=== PATIENT | male | born 1955 | race Caucasian/White ===

== ENCOUNTER → 2021-12-23 10:32 | Outpatient (CLI) | payer MEDICARE, MEDICAID, SELFPAY ==
[2021-12-23 19:21] LABS: Add Manual Diff / Slide Review NO; Basophils Absolute Auto 0 /uL (0-100); Basophils Percent Auto 1.1 % (0-2); Eosinophils Absolute Auto 100 /uL (0-450); Eosinophils Percent Auto 3.8 % (2-4); Hemoglobin 13.7 g/dL (13.5-17.5); Lymphocytes Absolute Auto 1200 /uL (1100-4500); Lymphocytes Percent Auto 31.5 % (25-40); Mean Corpuscular HGB Conc 33.4 % (30-36); Mean Corpuscular Hemoglobin 30.4 PG (26-34); Mean Corpuscular Volume 90.9 fL (80-100); Monocytes Absolute Auto 500 /uL (0-900); Monocytes Percent Auto 12.9 % (3-14); Neutrophils Absolute Auto 2000 /uL (1500-7000); Neutrophils Percent Auto 50.7 % (50-75); Platelet Count 235 X10^3/uL (150-400); Red Blood Cell Count 4.51 X10^6/uL (4.5-5.9); White Blood Cell Count 3.9 X10^3/uL (4.5-11.0)
[2021-12-23 20:37] LABS: Prostate Specific Antigen 0.419 ng/mL (0.10-4.00)
[2021-12-24 09:46] LABS: Alanine Aminotransferase 31 IU/L (<50); Albumin Globulin Ratio 1.3 (1.0-2.8); Alkaline Phosphatase 56 U/L (38-126); Aspartate Aminotransferase 32 IU/L (17-59); BUN Creatinine Ratio 15.4 (6-22); Bilirubin Total 0.4 mg/dL (0.2-1.3); Blood Urea Nitrogen 12 mg/dL (9-20); Carbon Dioxide 24 mmol/L (22-32); Chloride 104 mmol/L (98-107); Estimated Glomerular Filt Rate > 60 mL/min (>60); Glucose 99 mg/dL (80-110); HEMOLYSIS < 15 (0-50); Potassium 4.2 mmol/L (3.4-5.1); Sodium 135 mmol/L (137-145)
[2021-12-24 15:33] LABS: Cholesterol 213 mg/dL (140-199); HDL Cholesterol 73 mg/dL (40-60); LDL Cholesterol Calculated 126 mg/dL (<100); Triglycerides 70 mg/dL (35-150)
[2021-12-24 15:36] LABS: Hemoglobin A1C% w Est Avg Glu 5.6 % (4.0-6.0)
[2021-12-24 15:42] LABS: NT-proBNP (BNP-Adult 18+) 139 pg/mL (<125)
== END ==
PROVIDERS: PCP Physician Assistant; Visit Provider Physician Assistant
DX: Z01.818 Encounter for other preprocedural examination (principal); Z12.5 Encounter for screening for malignant neoplasm of prostate; Z13.1 Encounter for screening for diabetes mellitus; R53.83 Other fatigue; R60.0 Localized edema; Z23 Encounter for immunization
CPT/HCPCS: 80053; 80061; 83036; 83880; 84153; 85025

== ENCOUNTER → 2022-06-30 08:29 | Outpatient (CLI) | payer MEDICARE, MEDICAID, SELFPAY ==
--- NOTE | 2022-06-30 08:33 | DI.MRI.S_ITS ---
PROCEDURE: MR HIP RT WO/W CON INDICATIONS: Right hip pain TECHNIQUE: Noncontrast coronal T1 spin echo and STIR through the bony pelvis. Coronal and axial T2 fast spin echo with fat saturation, axial T1 spin echo with fat saturation, sagittal T1 spin echo, and oblique axial T2 fast spin echo with fat saturation through the hip. Post-contrast axial, coronal, and sagittal spin echo with fat saturation through the hip. COMPARISON: None. FINDINGS: Image quality: Diagnostic. Significant patient no valencia is noted throughout the study. Bones and joints: Asymmetric right worse than left bilateral hip joint osteoarthritic changes are seen with significant joint space narrowing, subchondral sclerosis and marginal osteophyte formation. Prominence of superior anterior right femoral head neck junction is noted which can be seen associated with CAM type femoral acetabular impingement. No intraosseous lesions or fractures. No avascular necrosis of the femoral heads. The visualized lower lumbar spine appears normally aligned. Tendons and ligaments: Distal right gluteus medius and minimus tendinosis at their insertion on greater trochanter is seen, without associated muscle atrophy. The nearby proximal iliotibial band also appears intact. The iliopsoas tendon appears intact, without adjacent bursal fluid collections or evidence for impingement syndrome. Tendinosis involving origins of hamstring tendons at ischial tuberosity is also noted. The straight and reflected heads of the rectus femoris muscle origin appear intact, as well as the conjoint tendon. The ligamentum teres appears intact where visualized. Labrum and cartilage: Signal abnormality and contour irregularity involving superior labrum extending from 11-2 o'clock position suggestive of superior anterior labral tear. Diffuse loss of articulating cartilages over femoral head is seen. There is small amount of right hip joint effusion. Oval 1.5 cm loose body in anterior inferior right hip joint is seen adjacent to right femoral neck. Soft tissues: No suspicious soft tissue enhancement. Visualized muscles demonstrate normal bulk and internal signal. Quadratus femoris muscle demonstrates no internal edema to suggest ischiofemoral impingement. The proximal sciatic neurovascular bundle appears normal adjacent to the hamstring tendons. No free pelvic fluid. Bladder wall thickness is normal. Genitourinary structures and bowel loops appear normal where visualized. IMPRESSION: 1. Asymmetric moderate right hip joint osteoarthritis. No hip fracture or dislocation. No evidence of avascular necrosis of femoral head. No abnormal intraosseous enhancement. 2. Prominence of superior anterior right femoral head neck junction with subcortical cystic areas which can be seen associated with CAM type femoral acetabular impingement. 3. Small right hip joint effusion with 1.5 cm intra-articular loose body as above. 4. Distal right gluteus medius and minimus tendinosis. Tendinosis involving hamstring tendon origins at ischial tuberosity. No other muscle or tendon signal abnormalities. No abnormal soft tissue enhancement. 5. Suggestion of extensive superior labral tear at 11 to 2 o'clock position. Dictated by: Swapnil Ball M.D. on 06/30/2022 at 10:49 Approved by: Swapnil Ball M.D. on 06/30/2022 at 11:39
== END ==
PROVIDERS: PCP Physician Assistant; Referring Provider Physician Assistant; Visit Provider Physician Assistant
DX: M16.0 Bilateral primary osteoarthritis of hip (principal); M25.551 Pain in right hip; M65.251 Calcific tendinitis, right thigh; R93.7 Abnormal findings on diagnostic imaging of other parts of musculoskeletal system; M25.451 Effusion, right hip
CPT/HCPCS: 73723

== ENCOUNTER 2022-08-20 10:32 | Inpatient (IN) | payer MEDICARE, MEDICAID, SELFPAY ==
[2022-08-20] VITALS (15 sets, daily range): BP systolic 99–115; BP diastolic 57–71; PULSE 8–98; RESP 14–28; TEMP 36.7–37.7; O2SAT 92–99; BMI 29.8; BMI 29.4
--- NOTE | 2022-08-20 10:45 | DI.CT.S_ITS ---
PROCEDURE: CT ABDOMEN PELVIS W CON INDICATIONS: LLQ pain TECHNIQUE: After the administration of oral and intravenous contrast, axial sections were acquired from the lung bases to the pubic symphysis. Coronal and sagittal reformats were performed. For radiation dose reduction, the following was used: automated exposure control, adjustment of mA and/or kV according to patient size. COMPARISON:None. FINDINGS: Image quality: Excellent. Lung bases: Atelectasis in the bilateral lung bases. Heart: No significant findings. ABDOMEN: Liver: Unremarkable. Gallbladder: Unremarkable. Biliary ducts: Unremarkable. Pancreas: Unremarkable. Spleen: Unremarkable. Adrenal Glands: Unremarkable. Kidneys and Ureters: Unremarkable. Stomach and Bowel: The distal esophagus and stomach are normal. The small bowel has a normal caliber. There is diverticulosis of the left colon and sigmoid colon with diffuse long segment wall thickening of the proximal sigmoid colon and surrounding inflammation consistent with acute diverticulitis. No evidence of abscess. There are scattered punctate foci of air adjacent to the sigmoid colon consistent with micro perforation but no overt free air. Peritoneum: No abnormal intraperitoneal fluid. No free air. Ventral Wall: No hernia. Abdominal Nodes: No retroperitoneal or mesenteric adenopathy by size criteria. Vessels: Aorta and inferior vena cava are normal in size. PELVIS: Pelvic Organs: Unremarkable. Bladder: Unremarkable. Pelvic Nodes: No enlarged lymph nodes. Miscellaneous: No inguinal hernias are seen. Bones: Degenerative changes with no focal abnormality. IMPRESSION: 1. Acute diverticulitis in the sigmoid colon with microperforation and surrounding inflammation. No abscess. 2. Diffuse long segment wall thickening of the sigmoid colon, underlying neoplasm is not completely excluded and colonoscopy is recommended upon clinical improvement. Dictated by: Erwin Dye M.D. on 08/20/2022 at 11:39 Approved by: Erwin Dye M.D. on 08/20/2022 at 11:45
--- NOTE | 2022-08-20 10:47 | ED_ITS ---
HPI - Abdominal Pain <Raheel Gilbert PA-C - Last Filed: 08/20/22 13:36> General Chief Complaint: Abdominal Pain Stated Complaint: sent by [facility]/abd pain/artyhimia Time Seen by Provider: 08/20/22 10:33 Source: patient and family Mode of arrival: Family Vehicle History of Present Illness HPI narrative: This is a 67-year-old male presents to the emergency department complaining of left lower quadrant pain as well as abdominal distension for the last 3 days. He states that the pain was only mild 3 days ago but reports more severe pain onset this morning causing him to come into the emergency department. He also reports small and frequent loose stools. Denies any blood in his stool. Also reports mild nausea but denies any vomiting. Denies any chest pain, shortness of breath. Does state that he has had some tactile fevers and chills. 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 Patient denies any abdominal surgeries or abdominal medical history. Patient does state that he has a history of ?arrhythmias? and was found to have PVCs when going through stress testing. Related Data Home Medications Medication Instructions Recorded Confirmed aspirin 325 mg tablet 325 mg PO PRN PRN pain 08/20/22 08/20/22 ibuprofen 400 mg tablet 400 mg PO Q6H PRN Pain (Scale 08/20/22 08/20/22 Score 7-10) melatonin 3 mg tablet 3 mg PO QPM 08/20/22 08/20/22 Previous Rx's Medication Instructions Recorded amoxicillin 875 mg-potassium 1 tab PO Q8H 12 days #36 tabs 08/22/22 clavulanate 125 mg tablet oxycodone-acetaminophen 5 mg-325 1 tab PO Q4-6H PRN pain #10 tabs 08/22/22 mg tablet (Percocet) Allergies Allergy/AdvReac Type Severity Reaction Status Date / Time No Known Drug Allergies Allergy Verified 08/20/22 10:39 Review of Systems <Raheel Gilbert PA-C - Last Filed: 08/20/22 13:36> Review of Systems Narrative: GENERAL: Denies chills, fatigue, malaise, fever, sweats. HEENT: Denies sinus pain, ear pain, sore throat, difficulty swallowing, dizziness. RESPIRATORY: Denies dyspnea, cough, wheezing, hemoptysis, sputum. CARDIOVASCULAR: Denies chest pain, palpitations, orthopnea, edema, GASTROINTESTINAL: Reports left lower quadrant abdominal pain, diarrhea, nausea, denies vomiting, denies blood in stool : Denies dysuria, frequency, incontinence, hematuria, urinary retention. MUSCULOSKELETAL: denies weakness, joint pain, or bony pain SKIN: Denies rash, skin lesions, or other NEUROLOGIC: Denies weakness, headache, numbness, change in speech, confusion, seizures, incoordination. PSYCHIATRIC: No concerning psychosocial issues. 12 point review of systems is negative except for those stated above Patient History <Raheel Gilbert PA-C - Last Filed: 08/20/22 13:36> Medical History (Updated 08/20/22 @ 12:15 by Raheel Gilbert PA-C) Right hip pain Surgical History (Updated 03/25/21 @ 21:52 by Yvrose Barriga) Anesthesia History of cataract removal with insertion of prosthetic lens (~2016) History of dental surgery (~2017) History of tonsillectomy Retinal tear of right eye (~2018) Family History (Updated 03/25/21 @ 21:56 by Yvrose Barriga) Father History of heart disease Hypertension Mother Diabetes mellitus History of heart disease Hypertension Hyperlipidemia Stroke Brother Stroke Sister Multiple sclerosis Grandfather History of heart disease Grandmother Diabetes mellitus History of heart disease Grandfather History of heart disease Stroke Social History household members: significant other Smoking Status: Former smoker Smoking Status: Former smoker alcohol intake frequency: 0-2 drinks per day Substance Use Type: does not use Exam <Raheel Gilbert PA-C - Last Filed: 08/20/22 13:36> Narrative Exam Narrative: GENERAL: Well-developed patient, in mild distress. HEAD: Atraumatic. Normocephalic. EYES: Pupils equal round and reactive. Extraocular motions intact. No scleral icterus. No injection or drainage. ENT: Nose without bleeding, purulent drainage. Throat without erythema, tonsillar hypertrophy or exudate. Airway patent. NECK: Trachea midline. Non tender CARDIOVASCULAR: Regular rate and rhythm without murmurs, gallops, or rubs. RESPIRATORY: Clear to auscultation. Breath sounds equal bilaterally. No wheezes, rales, or rhonchi. GASTROINTESTINAL: Mild distention of the abdomen, left lower quadrant tenderness to palpation EXTREMITIES: No edema or joint tenderness. BACK: Nontender without deformity or crepitance. No flank tenderness. NEURO: AOx3. SKIN: No rash or erythema of visible areas Initial Vital Signs Initial Vital Signs: Vital Signs Pulse Rate 92 H 08/20/22 10:37 Pulse Oximetry 95 08/20/22 10:37 <West Wiggins DO - Last Filed: 08/25/22 04:15> Initial Vital Signs Initial Vital Signs: Vital Signs Pulse Rate 92 H 08/20/22 10:37 Pulse Oximetry 95 08/20/22 10:37 Course <Raheel Gilbert PA-C - Last Filed: 08/20/22 13:36> Orders Ordered: Discontinued Medications Acetaminophen (Acetaminophen 325 Mg Tablet) 650 mg PO Q6H PRN PRN Reason: Fever/Mild Pain (1-3) Last Admin: 08/22/22 07:55 Dose: 650 mg Documented By: NASEEM Enoxaparin Sodium (Enoxaparin 40 Mg/0.4 Ml Syringe) 40 mg SUBCUT DAILY [facility] Last Admin: 08/22/22 09:22 Dose: 40 mg Documented By: Admin: 08/21/22 08:35 Dose: Not Given Documented By: SB Hydromorphone HCl (Hydromorphone 0.5 Mg Inj) 0.5 mg IV Q2H PRN PRN Reason: Pain, Mild (1-3) Hydromorphone HCl (Hydromorphone 1 Mg Inj) 1 mg IV Q3H PRN PRN Reason: Pain, Moderate (4-6) Hydromorphone HCl (Hydromorphone 0.5 Mg Inj) 0.5 mg IV Q3H PRN PRN Reason: Pain, Mild (1-3) Sodium Chloride (Normal Saline 0.9%) 1,000 mls @ 1,000 mls/hr IV BOLUS ONE Stop: 08/20/22 11:43 Last Infusion: 08/20/22 12:05 Dose: 0 mls/hr Documented By: Admin: 08/20/22 11:11 Dose: 1,000 mls/hr Documented By: NR Piperacillin Sod/Tazobactam (Sod 4.5 gm/ Sodium Chloride) 100 mls @ 200 mls/hr IV NOW ONE Stop: 08/20/22 11:52 Last Admin: 08/20/22 12:28 Dose: 200 mls/hr Documented By: NR Sodium Chloride (Normal Saline 0.9%) 2,993.7 mls @ 997.9 mls/hr 30 ml/kg infuse over 3 hr (2993.7 ml) IV NOW ONE Stop: 08/20/22 15:04 Last Admin: 08/20/22 12:28 Dose: 997.9 mls/hr Documented By: NR Sodium Chloride (Normal Saline 0.9%) 1,000 mls @ 100 mls/hr IV CONT [facility] Last Admin: 08/21/22 00:22 Dose: 100 mls/hr Documented By: Infusion: 08/21/22 00:05 Dose: 100 mls/hr Documented By: Admin: 08/20/22 14:05 Dose: 100 mls/hr Documented By: HCW Piperacillin Sod/Tazobactam (Sod 3.375 gm/ Sodium Chloride) 100 mls @ 25 mls/hr IV Q8H [facility] Last Infusion: 08/22/22 12:33 Dose: 25 mls/hr Documented By: Admin: 08/22/22 07:56 Dose: 25 mls/hr Documented By: Infusion: 08/22/22 04:27 Dose: 25 mls/hr Documented By: Admin: 08/22/22 00:17 Dose: 25 mls/hr Documented By: Infusion: 08/21/22 19:49 Dose: 25 mls/hr Documented By: Admin: 08/21/22 15:49 Dose: 25 mls/hr Documented By: Infusion: 08/21/22 12:39 Dose: 0 mls/hr Documented By: Admin: 08/21/22 08:23 Dose: 25 mls/hr Documented By: Infusion: 08/21/22 04:15 Dose: 0 mls/hr Documented By: Admin: 08/21/22 00:11 Dose: 25 mls/hr Documented By: Infusion: 08/20/22 20:42 Dose: 0 mls/hr Documented By: Admin: 08/20/22 16:37 Dose: 25 mls/hr Documented By: HCW Ketorolac Tromethamine (Ketorolac 30 Mg/Ml Vial) 15 mg IV Q6H PRN PRN Reason: pain (mild/mod) Stop: 08/25/22 13:52 Last Admin: 08/21/22 11:29 Dose: 15 mg Documented By: Admin: 08/21/22 04:12 Dose: 15 mg Documented By: Admin: 08/20/22 20:45 Dose: 15 mg Documented By: Admin: 08/20/22 14:43 Dose: 15 mg Documented By: HCW Melatonin (Melatonin 3 Mg Tablet) 3 mg PO BEDTIME PRN PRN Reason: sleep Naloxone HCl (Naloxone 0.4 Mg/Ml Vial) 0.2 mg IV Q2MIN PRN PRN Reason: Opiate Reversal Ondansetron HCl (Ondansetron 4 Mg/2 Ml Inj) 4 mg IV Q4HR PRN PRN Reason: Nausea And Vomiting Ondansetron HCl (Ondansetron 4 Mg Odt) 4 mg SL Q4HR PRN PRN Reason: Nausea Oxycodone HCl (Oxycodone Ir 5 Mg Tablet) 5 mg PO Q4HR PRN PRN Reason: Pain, Moderate (4-6) Potassium Chloride (Potassium Chloride 20 Meq Tab) 40 meq PO NOW ONE Stop: 08/22/22 10:49 Last Admin: 08/22/22 11:18 Dose: 40 meq Documented By: NASEEM Sodium Chloride (Sodium Chloride 1,000 Mg Tablet) 1,000 mg PO TIDWM [facility] Last Admin: 08/22/22 12:33 Dose: 1,000 mg Documented By: Admin: 08/22/22 09:22 Dose: 1,000 mg Documented By: Admin: 08/21/22 16:49 Dose: 1,000 mg Documented By: Admin: 08/21/22 11:30 Dose: 1,000 mg Documented By: Admin: 08/21/22 08:46 Dose: 1,000 mg Documented By: MARGIE Vital Signs Vital signs: Vital Signs - 8 hr 08/20/22 10:39 08/20/22 10:37 08/20/22 10:39 Temperature 99.9 F H Pulse Rate 95 H 92 H Respiratory Rate 24 Blood Pressure 106/68 106/68 Pulse Oximetry 99 95 Oxygen Delivery Method Room Air 08/20/22 10:39 08/20/22 11:00 08/20/22 11:10 Temperature Pulse Rate 93 H 95 H Respiratory Rate 14 20 Blood Pressure 107/65 Pulse Oximetry 96 94 Oxygen Delivery Method 08/20/22 11:10 08/20/22 11:40 08/20/22 11:41 Temperature Pulse Rate 93 H 97 H 95 H Respiratory Rate 23 25 H Blood Pressure Pulse Oximetry 95 92 98 Oxygen Delivery Method 08/20/22 11:41 08/20/22 12:00 08/20/22 12:00 Temperature Pulse Rate 98 H Respiratory Rate 28 H Blood Pressure 115/68 103/71 Pulse Oximetry 97 Oxygen Delivery Method Room Air <West Wiggins DO - Last Filed: 08/25/22 04:15> Orders Ordered: Discontinued Medications Acetaminophen (Acetaminophen 325 Mg Tablet) 650 mg PO Q6H PRN PRN Reason: Fever/Mild Pain (1-3) Last Admin: 08/22/22 07:55 Dose: 650 mg Documented By: BT Enoxaparin Sodium (Enoxaparin 40 Mg/0.4 Ml Syringe) 40 mg SUBCUT DAILY [facility] Last Admin: 08/22/22 09:22 Dose: 40 mg Documented By: Admin: 08/21/22 08:35 Dose: Not Given Documented By: MARGIE Hydromorphone HCl (Hydromorphone 0.5 Mg Inj) 0.5 mg IV Q2H PRN PRN Reason: Pain, Mild (1-3) Hydromorphone HCl (Hydromorphone 1 Mg Inj) 1 mg IV Q3H PRN PRN Reason: Pain, Moderate (4-6) Hydromorphone HCl (Hydromorphone 0.5 Mg Inj) 0.5 mg IV Q3H PRN PRN Reason: Pain, Mild (1-3) Sodium Chloride (Normal Saline 0.9%) 1,000 mls @ 1,000 mls/hr IV BOLUS ONE Stop: 08/20/22 11:43 Last Infusion: 08/20/22 12:05 Dose: 0 mls/hr Documented By: Admin: 08/20/22 11:11 Dose: 1,000 mls/hr Documented By: NR Piperacillin Sod/Tazobactam (Sod 4.5 gm/ Sodium Chloride) 100 mls @ 200 mls/hr IV NOW ONE Stop: 08/20/22 11:52 Last Admin: 08/20/22 12:28 Dose: 200 mls/hr Documented By: NR Sodium Chloride (Normal Saline 0.9%) 2,993.7 mls @ 997.9 mls/hr 30 ml/kg infuse over 3 hr (2993.7 ml) IV NOW ONE Stop: 08/20/22 15:04 Last Admin: 08/20/22 12:28 Dose: 997.9 mls/hr Documented By: NR Sodium Chloride (Normal Saline 0.9%) 1,000 mls @ 100 mls/hr IV CONT CASH Last Admin: 08/21/22 00:22 Dose: 100 mls/hr Documented By: Infusion: 08/21/22 00:05 Dose: 100 mls/hr Documented By: Admin: 08/20/22 14:05 Dose: 100 mls/hr Documented By: HCW Piperacillin Sod/Tazobactam (Sod 3.375 gm/ Sodium Chloride) 100 mls @ 25 mls/hr IV Q8H [facility] Last Infusion: 08/22/22 12:33 Dose: 25 mls/hr Documented By: Admin: 08/22/22 07:56 Dose: 25 mls/hr Documented By: Infusion: 08/22/22 04:27 Dose: 25 mls/hr Documented By: Admin: 08/22/22 00:17 Dose: 25 mls/hr Documented By: Infusion: 08/21/22 19:49 Dose: 25 mls/hr Documented By: Admin: 08/21/22 15:49 Dose: 25 mls/hr Documented By: Infusion: 08/21/22 12:39 Dose: 0 mls/hr Documented By: Admin: 08/21/22 08:23 Dose: 25 mls/hr Documented By: Infusion: 08/21/22 04:15 Dose: 0 mls/hr Documented By: Admin: 08/21/22 00:11 Dose: 25 mls/hr Documented By: Infusion: 08/20/22 20:42 Dose: 0 mls/hr Documented By: Admin: 08/20/22 16:37 Dose: 25 mls/hr Documented By: HCW Ketorolac Tromethamine (Ketorolac 30 Mg/Ml Vial) 15 mg IV Q6H PRN PRN Reason: pain (mild/mod) Stop: 08/25/22 13:52 Last Admin: 08/21/22 11:29 Dose: 15 mg Documented By: Admin: 08/21/22 04:12 Dose: 15 mg Documented By: Admin: 08/20/22 20:45 Dose: 15 mg Documented By: Admin: 08/20/22 14:43 Dose: 15 mg Documented By: HCW Melatonin (Melatonin 3 Mg Tablet) 3 mg PO BEDTIME PRN PRN Reason: sleep Naloxone HCl (Naloxone 0.4 Mg/Ml Vial) 0.2 mg IV Q2MIN PRN PRN Reason: Opiate Reversal Ondansetron HCl (Ondansetron 4 Mg/2 Ml Inj) 4 mg IV Q4HR PRN PRN Reason: Nausea And Vomiting Ondansetron HCl (Ondansetron 4 Mg Odt) 4 mg SL Q4HR PRN PRN Reason: Nausea Oxycodone HCl (Oxycodone Ir 5 Mg Tablet) 5 mg PO Q4HR PRN PRN Reason: Pain, Moderate (4-6) Potassium Chloride (Potassium Chloride 20 Meq Tab) 40 meq PO NOW ONE Stop: 08/22/22 10:49 Last Admin: 08/22/22 11:18 Dose: 40 meq Documented By: NASEEM Sodium Chloride (Sodium Chloride 1,000 Mg Tablet) 1,000 mg PO TIDWM [facility] Last Admin: 08/22/22 12:33 Dose: 1,000 mg Documented By: Admin: 08/22/22 09:22 Dose: 1,000 mg Documented By: Admin: 08/21/22 16:49 Dose: 1,000 mg Documented By: Admin: 08/21/22 11:30 Dose: 1,000 mg Documented By: Admin: 08/21/22 08:46 Dose: 1,000 mg Documented By: MARGIE Vital Signs Vital signs: Vital Signs - 8 hr 08/20/22 10:39 08/20/22 10:37 08/20/22 10:39 Temperature 99.9 F H Pulse Rate 95 H 92 H Respiratory Rate 24 Blood Pressure 106/68 106/68 Pulse Oximetry 99 95 Oxygen Delivery Method Room Air 08/20/22 10:39 08/20/22 11:00 08/20/22 11:10 Temperature Pulse Rate 93 H 95 H Respiratory Rate 14 20 Blood Pressure 107/65 Pulse Oximetry 96 94 Oxygen Delivery Method 08/20/22 11:10 08/20/22 11:40 08/20/22 11:41 Temperature Pulse Rate 93 H 97 H 95 H Respiratory Rate 23 25 H Blood Pressure Pulse Oximetry 95 92 98 Oxygen Delivery Method 08/20/22 11:41 08/20/22 12:00 08/20/22 12:00 Temperature Pulse Rate 98 H Respiratory Rate 28 H Blood Pressure 115/68 103/71 Pulse Oximetry 97 Oxygen Delivery Method Room Air MDM - Abdominal Pain <Raheel Gilbert PA-C - Last Filed: 08/20/22 13:36> Lab Data 08/22/22 08:39 08/22/22 08:39 Labs: Lab Results 08/20/22 08/20/22 08/20/22 Range/Units 10:50 10:50 10:50 WBC 12.8 H (4.5-11.0) X10^3/uL RBC 4.60 (4.5-5.9) X10^6/uL Hgb 14.0 (13.5-17.5) g/dL Hct 41.1 (41-53) % MCV 89.4 (80-100) fL MCH 30.5 (26-34) PG MCHC 34.1 (30-36) % RDW 14.6 (11.6-14.8) % Plt Count 248 (150-400) X10^3/uL Neut % (Auto) 91.9 H (50-75) % Lymph % (Auto) 2.9 L (25-40) % [place] % (Auto) 5.2 (3-14) % Eos % (Auto) 0.0 L (2-4) % Baso % (Auto) 0.0 (0-2) % Neut # (Auto) 18777 H (7424-2718) /uL Lymph # (Auto) 400 L (9121-2782) /uL [place] # (Auto) 700 (0-900) /uL Eos # (Auto) 0 (0-450) /uL Baso # (Auto) 0 (0-100) /uL Sodium 127 L (137-145) mmol/L Potassium 3.7 (3.4-5.1) mmol/L Chloride 96 L (98-107) mmol/L Carbon Dioxide 21 L (22-32) mmol/L BUN 9 (9-20) mg/dL Creatinine 0.66 (0.66-1.25) mg/dL Estimated GFR > 60 (>60) mL/min BUN/Creatinine Ratio 13.6 (6-22) Glucose 98 (80-110) mg/dL Lactate 0.7 (0.7-2.1) mmol/L Calcium 8.6 (8.4-10.2) mg/dL Magnesium 1.8 (1.6-2.3) mg/dL Total Bilirubin 0.9 (0.2-1.3) mg/dL AST 23 (17-59) IU/L ALT 26 (<50) IU/L Alkaline Phosphatase 66 (38-126) U/L Total Protein 7.2 (6.3-8.2) g/dL Albumin 4.0 (3.5-5.0) g/dL Globulin 3.2 (1.7-4.1) g/dL Albumin/Globulin Ratio 1.3 (1.0-2.8) Lipase 19 L (23-300) U/L Procalcitonin (<0.5) ng/mL Urine Color Urine Appearance Urine pH (4.5-8.0) Ur Specific [place] (1.000-1.035) Urine Protein (Negative) Urine Glucose (UA) (Negative) g/dL Urine Ketones (NEGATIVE) Urine Occult Blood (Negative) Urine Nitrate (Negative) Urine Bilirubin (NEGATIVE) Ur Bilirubin Confirm (Negative) Urine Urobilinogen (0.2) E.U./dL Ur Leukocyte Esterase (NEGATIVE) Urine RBC (0-5/HPF) Urine WBC (0-5/HPF) Ur Squamous Epith Cells (0-5/HPF) Urine Bacteria (None) Hyaline Casts (None) Ur Culture Indicated? 08/20/22 08/20/22 Range/Units 10:50 11:40 WBC (4.5-11.0) X10^3/uL RBC (4.5-5.9) X10^6/uL Hgb (13.5-17.5) g/dL Hct (41-53) % MCV (80-100) fL MCH (26-34) PG MCHC (30-36) % RDW (11.6-14.8) % Plt Count (150-400) X10^3/uL Neut % (Auto) (50-75) % Lymph % (Auto) (25-40) % [place] % (Auto) (3-14) % Eos % (Auto) (2-4) % Baso % (Auto) (0-2) % Neut # (Auto) (5533-6494) /uL Lymph # (Auto) (9458-2808) /uL [place] # (Auto) (0-900) /uL Eos # (Auto) (0-450) /uL Baso # (Auto) (0-100) /uL Sodium (137-145) mmol/L Potassium (3.4-5.1) mmol/L Chloride (98-107) mmol/L Carbon Dioxide (22-32) mmol/L BUN (9-20) mg/dL Creatinine (0.66-1.25) mg/dL Estimated GFR (>60) mL/min BUN/Creatinine Ratio (6-22) Glucose (80-110) mg/dL Lactate (0.7-2.1) mmol/L Calcium (8.4-10.2) mg/dL Magnesium (1.6-2.3) mg/dL Total Bilirubin (0.2-1.3) mg/dL AST (17-59) IU/L ALT (<50) IU/L Alkaline Phosphatase (38-126) U/L Total Protein (6.3-8.2) g/dL Albumin (3.5-5.0) g/dL Globulin (1.7-4.1) g/dL Albumin/Globulin Ratio (1.0-2.8) Lipase (23-300) U/L Procalcitonin 1.68 H (<0.5) ng/mL Urine Color Yellow Urine Appearance Clear Urine pH 6.0 (4.5-8.0) Ur Specific [place] 1.020 (1.000-1.035) Urine Protein Trace H (Negative) Urine Glucose (UA) Negative (Negative) g/dL Urine Ketones 3+ H (NEGATIVE) Urine Occult Blood Negative (Negative) Urine Nitrate Negative (Negative) Urine Bilirubin 1+ H (NEGATIVE) Ur Bilirubin Confirm Negative (Negative) Urine Urobilinogen 0.2 (0.2) E.U./dL Ur Leukocyte Esterase Negative (NEGATIVE) Urine RBC 0-1/hpf (0-5/HPF) Urine WBC 0-1/hpf (0-5/HPF) Ur Squamous Epith Cells 0-1 /hpf (0-5/HPF) Urine Bacteria None seen (None) Hyaline Casts 0-1/lpf (None) Ur Culture Indicated? Cult not indicated Imaging Data CT scan - abdomen/pelvis: Radiologist's Impression: [address] [address] [address] Scan Report Addendum Patient: Abraham Echavarria MR#: [id number] : 1955 Acct:[id number] Age/Sex: 67 / M Date of Service: 08/20/22 Loc: ED Accession Number: [id number] ?? Procedure: CT abdomen pelvis w con Ordering Provider: Raheel Gilbert P.A-C ADDENDUMThis report includes an Addendum and supersedes previous reports for this exam. ? ? ? PROCEDURE:? CT ABDOMEN PELVIS W CON ? INDICATIONS:? LLQ pain ? TECHNIQUE:? After the administration of oral and intravenous contrast, axial sections were acquired from the lung bases to the pubic symphysis.? Coronal and sagittal reformats were performed.? For radiation dose reduction, the following was used:? automated exposure control, adjustment of mA and/or kV according to patient size.? ? COMPARISON:None. ? FINDINGS:? Image quality:? Excellent.? ? Lung bases:? Atelectasis in the bilateral lung bases. Heart:? No significant findings. ? ? ABDOMEN: Liver:? Unremarkable.? ? Gallbladder:? Unremarkable.? ? Biliary ducts:? Unremarkable.? ? Pancreas:? Unremarkable.? ? Spleen:? Unremarkable.? ? Adrenal Glands:? Unremarkable.? ? Kidneys and Ureters:? Unremarkable.? ? ? Stomach and Bowel:? The distal esophagus and stomach are normal.? The small bowel has a normal caliber.? There is diverticulosis of the left colon and sigmoid colon with diffuse long segment wall thickening of the proximal sigmoid colon and surrounding inflammation consistent with acute diverticulitis.? No evidence of abscess.? There are scattered punctate foci of air adjacent to the sigmoid colon consistent with micro perforation but no overt free air. Peritoneum:? No abnormal intraperitoneal fluid.? No free air.? ? Ventral Wall: ? No hernia.? Abdominal Nodes:? No retroperitoneal or mesenteric adenopathy by size criteria.? Vessels:? Aorta and inferior vena cava are normal in size.? ? PELVIS: Pelvic Organs:? Unremarkable.? ? Bladder:? Unremarkable.? ? Pelvic Nodes: No enlarged lymph nodes.? Miscellaneous: No inguinal hernias are seen. ? ? ? Bones:? Degenerative changes with no focal abnormality. ? IMPRESSION: 1. Acute diverticulitis in the sigmoid colon with microperforation and surrounding inflammation.? No abscess. 2. Diffuse long segment wall thickening of the sigmoid colon, underlying neoplasm is not completely excluded and colonoscopy is recommended upon clinical improvement.? ? ? Dictated by: Erwin Dye M.D. on 08/20/2022 at 11:39 ? ? Approved by: Erwin Dye M.D. on 08/20/2022 at 11:45 ? ? ? ADDENDUM: ? Findings were discussed with the emergency physician at 11:45. ? Dictated by: Erwin Dye M.D. on 08/20/2022 at 11:47 ? ? Approved by: Erwin Dye M.D. on 08/20/2022 at 11:48 ? Addendum Dictated By: Erwin Dye MD Addendum Signed By: Addendum Cosigned By: DD/ TD/TT: 08/20/22 PROCEDURE:? CT ABDOMEN PELVIS W CON ? INDICATIONS:? LLQ pain ? TECHNIQUE:? After the administration of oral and intravenous contrast, axial sections were acquired from the lung bases to the pubic symphysis.? Coronal and sagittal reformats were performed.? For radiation dose reduction, the following was used:? automated exposure control, adjustment of mA and/or kV according to patient size.? ? COMPARISON:None. ? FINDINGS:? Image quality:? Excellent.? ? Lung bases:? Atelectasis in the bilateral lung bases. Heart:? No significant findings. ? ? ABDOMEN: Liver:? Unremarkable.? ? Gallbladder:? Unremarkable.? ? Biliary ducts:? Unremarkable.? ? Pancreas:? Unremarkable.? ? Spleen:? Unremarkable.? ? Adrenal Glands:? Unremarkable.? ? Kidneys and Ureters:? Unremarkable.? ? ? Stomach and Bowel:? The distal esophagus and stomach are normal.? The small bowel has a normal caliber.? There is diverticulosis of the left colon and sigmoid colon with diffuse long segment wall thickening of the proximal sigmoid colon and surrounding inflammation consistent with acute diverticulitis.? No evidence of abscess.? There are scattered punctate foci of air adjacent to the sigmoid colon consistent with micro perforation but no overt free air. Peritoneum:? No abnormal intraperitoneal fluid.? No free air.? ? Ventral Wall: ? No hernia.? Abdominal Nodes:? No retroperitoneal or mesenteric adenopathy by size criteria.? Vessels:? Aorta and inferior vena cava are normal in size.? ? PELVIS: Pelvic Organs:? Unremarkable.? ? Bladder:? Unremarkable.? ? Pelvic Nodes: No enlarged lymph nodes.? Miscellaneous: No inguinal hernias are seen. ? ? ? Bones:? Degenerative changes with no focal abnormality. ? IMPRESSION: 1. Acute diverticulitis in the sigmoid colon with microperforation and surrounding inflammation.? No abscess. 2. Diffuse long segment wall thickening of the sigmoid colon, underlying neoplasm is not completely excluded and colonoscopy is recommended upon clinical improvement.? ? ? Dictated by: Erwin Dye M.D. on 08/20/2022 at 11:39 ? ? Approved by: Erwin Dye M.D. on 08/20/2022 at 11:45 ? ECG Data Interpretation: EKG is normal sinus rhythm rate 90 and free of any signs of ischemia or ectopy. No ST segmental elevation or depression. No T wave inversions MDM Narrative Medical decision making narrative: MDM * differential diagnosis includes but not limited to viral gastroenteritis, bacterial gastroenteritis, cholecystitis, appendicitis, ulcerative colitis, diverticulitis * Prior records reviewed: Patient has not been here for similar symptoms in the past. * My lab interpretation: Mild leukocytosis of 12.8. Hyponatremic at 127 but no other symptoms of acute hyponatremia. Procalcitonin of 1.68. Lactate within normal limits. * My imaging interpretation: CT showed diverticulitis with microperforations. * Clinical Decision Rules/Scores evaluated: None * Independent discussions with: None ED Course: This is a 67-year-old male presents to the emergency department due to 3 days of left lower quadrant pain. CT was ordered which showed diverticulitis with microperforations. This was discussed with on-call general surgeon, Dr. Brooks, who did not recommend any surgical intervention but did recommend IV antibiotics and admission. This was discussed with Dr. Coto, hospitalist, who kindly accepted the patient for admission. Patient has also met sepsis criteria and fluids and IV Zosyn was given. Lab work as noted above. Blood cultures pending. Stool culture also ordered as patient reports episodes of diarrhea but patient was unable to give sample. Shared Decision Making: Discussed plan the patient is comfortable with the plan. Social Considerations: None Disposition: Admit <[place] Wiggins, - Last Filed: 08/25/22 04:15> Lab Data Labs: Lab Results 08/20/22 08/20/22 08/20/22 Range/Units 10:50 10:50 10:50 WBC 12.8 H (4.5-11.0) X10^3/uL RBC 4.60 (4.5-5.9) X10^6/uL Hgb 14.0 (13.5-17.5) g/dL Hct 41.1 (41-53) % MCV 89.4 (80-100) fL MCH 30.5 (26-34) PG MCHC 34.1 (30-36) % RDW 14.6 (11.6-14.8) % Plt Count 248 (150-400) X10^3/uL Neut % (Auto) 91.9 H (50-75) % Lymph % (Auto) 2.9 L (25-40) % [place] % (Auto) 5.2 (3-14) % Eos % (Auto) 0.0 L (2-4) % Baso % (Auto) 0.0 (0-2) % Neut # (Auto) 57798 H (1302-1124) /uL Lymph # (Auto) 400 L (8064-1107) /uL [place] # (Auto) 700 (0-900) /uL Eos # (Auto) 0 (0-450) /uL Baso # (Auto) 0 (0-100) /uL Sodium 127 L (137-145) mmol/L Potassium 3.7 (3.4-5.1) mmol/L Chloride 96 L (98-107) mmol/L Carbon Dioxide 21 L (22-32) mmol/L BUN 9 (9-20) mg/dL Creatinine 0.66 (0.66-1.25) mg/dL Estimated GFR > 60 (>60) mL/min BUN/Creatinine Ratio 13.6 (6-22) Glucose 98 (80-110) mg/dL Lactate 0.7 (0.7-2.1) mmol/L Calcium 8.6 (8.4-10.2) mg/dL Magnesium 1.8 (1.6-2.3) mg/dL Total Bilirubin 0.9 (0.2-1.3) mg/dL AST 23 (17-59) IU/L ALT 26 (<50) IU/L Alkaline Phosphatase 66 (38-126) U/L Total Protein 7.2 (6.3-8.2) g/dL Albumin 4.0 (3.5-5.0) g/dL Globulin 3.2 (1.7-4.1) g/dL Albumin/Globulin Ratio 1.3 (1.0-2.8) Lipase 19 L (23-300) U/L Procalcitonin (<0.5) ng/mL Urine Color Urine Appearance Urine pH (4.5-8.0) Ur Specific [place] (1.000-1.035) Urine Protein (Negative) Urine Glucose (UA) (Negative) g/dL Urine Ketones (NEGATIVE) Urine Occult Blood (Negative) Urine Nitrate (Negative) Urine Bilirubin (NEGATIVE) Ur Bilirubin Confirm (Negative) Urine Urobilinogen (0.2) E.U./dL Ur Leukocyte Esterase (NEGATIVE) Urine RBC (0-5/HPF) Urine WBC (0-5/HPF) Ur Squamous Epith Cells (0-5/HPF) Urine Bacteria (None) Hyaline Casts (None) Ur Culture Indicated? 08/20/22 08/20/22 Range/Units 10:50 11:40 WBC (4.5-11.0) X10^3/uL RBC (4.5-5.9) X10^6/uL Hgb (13.5-17.5) g/dL Hct (41-53) % MCV (80-100) fL MCH (26-34) PG MCHC (30-36) % RDW (11.6-14.8) % Plt Count (150-400) X10^3/uL Neut % (Auto) (50-75) % Lymph % (Auto) (25-40) % [place] % (Auto) (3-14) % Eos % (Auto) (2-4) % Baso % (Auto) (0-2) % Neut # (Auto) (0902-1776) /uL Lymph # (Auto) (9533-2267) /uL [place] # (Auto) (0-900) /uL Eos # (Auto) (0-450) /uL Baso # (Auto) (0-100) /uL Sodium (137-145) mmol/L Potassium (3.4-5.1) mmol/L Chloride (98-107) mmol/L Carbon Dioxide (22-32) mmol/L BUN (9-20) mg/dL Creatinine (0.66-1.25) mg/dL Estimated GFR (>60) mL/min BUN/Creatinine Ratio (6-22) Glucose (80-110) mg/dL Lactate (0.7-2.1) mmol/L Calcium (8.4-10.2) mg/dL Magnesium (1.6-2.3) mg/dL Total Bilirubin (0.2-1.3) mg/dL AST (17-59) IU/L ALT (<50) IU/L Alkaline Phosphatase (38-126) U/L Total Protein (6.3-8.2) g/dL Albumin (3.5-5.0) g/dL Globulin (1.7-4.1) g/dL Albumin/Globulin Ratio (1.0-2.8) Lipase (23-300) U/L Procalcitonin 1.68 H (<0.5) ng/mL Urine Color Yellow Urine Appearance Clear Urine pH 6.0 (4.5-8.0) Ur Specific [place] 1.020 (1.000-1.035) Urine Protein Trace H (Negative) Urine Glucose (UA) Negative (Negative) g/dL Urine Ketones 3+ H (NEGATIVE) Urine Occult Blood Negative (Negative) Urine Nitrate Negative (Negative) Urine Bilirubin 1+ H (NEGATIVE) Ur Bilirubin Confirm Negative (Negative) Urine Urobilinogen 0.2 (0.2) E.U./dL Ur Leukocyte Esterase Negative (NEGATIVE) Urine RBC 0-1/hpf (0-5/HPF) Urine WBC 0-1/hpf (0-5/HPF) Ur Squamous Epith Cells 0-1 /hpf (0-5/HPF) Urine Bacteria None seen (None) Hyaline Casts 0-1/lpf (None) Ur Culture Indicated? Cult not indicated Discharge Plan Departure Patient Disposition: Admitted As Inpatient Clinical Impression: Diverticulitis Admit Date/Time: 08/20/22 12:29 Admit Provider: Lucho Coto <[place] DO - Last Filed: 08/25/22 04:15> Cosign ED Attending Cosannamariaature Attestation: I was immediately available in the department for consultation. Documentation has been reviewed. I agree with assessment and plan.
[2022-08-20 11:04] LABS: Add Manual Diff / Slide Review NO; Basophils Absolute Auto 0 /uL (0-100); Eosinophils Absolute Auto 0 /uL (0-450); Hematocrit 41.1 % (41-53); Lymphocytes Absolute Auto 400 /uL (1100-4500); Lymphocytes Percent Auto 2.9 % (25-40); Mean Corpuscular HGB Conc 34.1 % (30-36); Mean Corpuscular Hemoglobin 30.5 PG (26-34); Mean Corpuscular Volume 89.4 fL (80-100); Monocytes Absolute Auto 700 /uL (0-900); Monocytes Percent Auto 5.2 % (3-14); Neutrophils Absolute Auto 11700 /uL (1500-7000); Neutrophils Percent Auto 91.9 % (50-75); Platelet Count 248 X10^3/uL (150-400); Red Cell Distribution Width 14.6 % (11.6-14.8); White Blood Cell Count 12.8 X10^3/uL (4.5-11.0)
[2022-08-20] MEDS: SODIUM CHLORIDE 0.9% 1,000 ML 1000 ML IV (11:11)
[2022-08-20 11:15] LABS: Lactate (Lactic Acid) 0.7 mmol/L (0.7-2.1)
[2022-08-20 11:17] LABS: Alanine Aminotransferase 26 IU/L (<50); Albumin Globulin Ratio 1.3 (1.0-2.8); Alkaline Phosphatase 66 U/L (38-126); Aspartate Aminotransferase 23 IU/L (17-59); BUN Creatinine Ratio 13.6 (6-22); Bilirubin Total 0.9 mg/dL (0.2-1.3); Blood Urea Nitrogen 9 mg/dL (9-20); Calcium 8.6 mg/dL (8.4-10.2); Carbon Dioxide 21 mmol/L (22-32); Chloride 96 mmol/L (98-107); Estimated Glomerular Filt Rate > 60 mL/min (>60); Globulin 3.2 g/dL (1.7-4.1); Glucose 98 mg/dL (80-110); HEMOLYSIS < 15 (0-50); Lipase 19 U/L (23-300); Magnesium 1.8 mg/dL (1.6-2.3); Potassium 3.7 mmol/L (3.4-5.1); Sodium 127 mmol/L (137-145); Total Protein 7.2 g/dL (6.3-8.2)
[2022-08-20 11:32] LABS: Procalcitonin 1.68 ng/mL (<0.5)
[2022-08-20 12:14] LABS: Appearance Urine UA CLEAR; Bilirubin Urine UA 1+ (NEGATIVE); Color Urine UA YELLOW; Glucose Urine UA NEGATIVE (Negative); Ketones Urine UA 3+ (NEGATIVE); Leukocyte Esterase Urine UA NEGATIVE (NEGATIVE); Nitrite Urine UA NEGATIVE (Negative); Occult Blood Urine UA NEGATIVE (Negative); Protein Urine UA TRACE (Negative); Urobilinogen Urine UA 0.2 E.U./dL (0.2)
[2022-08-20 12:22] LABS: Bacteria Urine None Seen; Culture Indicated Urine Cult Not Indicated; Hyaline Casts Urine 0-1/LPF; Ictotest Urine Negative (Negative); RBC Urine 0-1/HPF (0-5/HPF); Squamous Epithelial Cell Urine 0-1 /HPF (0-5/HPF); WBC Urine 0-1/HPF (0-5/HPF)
[2022-08-20] MEDS: PIPERACILLIN/TAZO 4.5 GM in SODIUM CHLORIDE 0.9% 100 ML IV (12:28)
[2022-08-20] MEDS: SODIUM CHLORIDE 0.9% 2,993.7 ML 997.9 ML IV (12:28)
[2022-08-20] MEDS: SODIUM CHLORIDE 0.9% 1,000 ML 100 ML IV (14:05)
--- NOTE | 2022-08-20 14:41 | P.HP_ITS ---
History of Present Illness History of Present Illness Date Patient Seen: 08/20/22 Time Patient Seen: 14:15 Chief complaint: sent by [place]/abd pain/arythmia Narrative: Pt is 67 yo male without significant past medical history presents to ED with c/o worsening abdominal pain. Discomfort started 3 days ago in left lower abdomen. It got much worse last night. He has had low grade temp and chills, nausea without vomiting. He has not had prior episodes of similar pain. he has never had a colonoscopy. Ct scan showed sigmoid diverticulitis with microperforation, without abscess, and thickening in sigmoid. Labs WBC 12.8 with left shift, Na 127, K 3.7, Cr 0.66, UA 3+ ketones. EKG showed sinus arrythmia, 1st degree AVB. Pt had recent work up for PVCs including stress test at [facility] and told it was normal. Has right hip OA. 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 [facility] Medical History (Updated 08/20/22 @ 12:15 by Raheel Gilbert PA-C) Right hip pain Surgical History (Updated 03/25/21 @ 21:52 by Yvrose Barriga) Anesthesia History of cataract removal with insertion of prosthetic lens (~2016) History of dental surgery (~2018) History of tonsillectomy Retinal tear of right eye (~2018) Family History (Updated 03/25/21 @ 21:56 by Yvrose Barriga) Father History of heart disease Hypertension Mother Diabetes mellitus History of heart disease Hypertension Hyperlipidemia Stroke Brother Stroke Sister Multiple sclerosis Grandfather History of heart disease Grandmother Diabetes mellitus History of heart disease Grandfather History of heart disease Stroke Social History household members: significant other Smoking Status: Former smoker Meds Home Medications and Allergies Home Medications Medication Instructions Recorded Confirmed Type aspirin 325 mg tablet 325 mg PO PRN PRN pain 08/20/22 08/20/22 History ibuprofen 400 mg tablet 400 mg PO Q6H PRN Pain (Scale 08/20/22 08/20/22 History Score 7-10) melatonin 3 mg tablet 3 mg PO QPM 08/20/22 08/20/22 History Allergies Allergy/AdvReac Type Severity Reaction Status Date / Time No Known Drug Allergies Allergy Verified 08/20/22 10:39 Exam Vital Signs (past 8 hours): - 08/20/22 10:39 08/20/22 10:37 08/20/22 10:39 Temperature 99.9 F H Pulse Rate 95 H 92 H Respiratory Rate 24 Blood Pressure 106/68 106/68 Pulse Oximetry 99 95 Oxygen Delivery Method Room Air Oxygen Flow Rate 08/20/22 10:39 08/20/22 11:00 08/20/22 11:10 Temperature Pulse Rate 93 H 95 H Respiratory Rate 14 20 Blood Pressure 107/65 Pulse Oximetry 96 94 Oxygen Delivery Method Oxygen Flow Rate 08/20/22 11:10 08/20/22 11:40 08/20/22 11:41 Temperature Pulse Rate 93 H 97 H 95 H Respiratory Rate 23 25 H Blood Pressure Pulse Oximetry 95 92 98 Oxygen Delivery Method Oxygen Flow Rate 08/20/22 11:41 08/20/22 12:00 08/20/22 12:00 Temperature Pulse Rate 98 H Respiratory Rate 28 H Blood Pressure 115/68 103/71 Pulse Oximetry 97 Oxygen Delivery Method Room Air Oxygen Flow Rate 08/20/22 12:30 08/20/22 12:30 08/20/22 13:08 Temperature Pulse Rate 98 H Respiratory Rate 20 Blood Pressure 100/64 Pulse Oximetry 95 Oxygen Delivery Method Room Air Oxygen Flow Rate 08/20/22 13:45 08/20/22 14:06 Temperature 99.1 F Pulse Rate 97 H Respiratory Rate 18 Blood Pressure 110/68 Pulse Oximetry 96 96 Oxygen Delivery Method Room Air Oxygen Flow Rate 0 Oxygen Delivery Method Room Air Oxygen Flow Rate 0 Narrative Exam Narrative: Gen: alert, WD/WN male, NAD HEENT: pupils equal, EOMI neck: no enlarged LNs Lungs: clear to auscultation CV: nl S1, S2, RRR, no murmur Abd: NABS, tender and guarding LLQ, no HSM Ext: no edema Neuro: nl affect and speech, cognitive appears intact Objective Labs 08/20/22 10:50 08/20/22 10:50 Labs: Laboratory Results - last 24 hr 08/20/22 08/20/22 08/20/22 10:50 10:50 10:50 WBC 12.8 H RBC 4.60 Hgb 14.0 Hct 41.1 MCV 89.4 MCH 30.5 MCHC 34.1 RDW 14.6 Plt Count 248 Neut % (Auto) 91.9 H Lymph % (Auto) 2.9 L [place] % (Auto) 5.2 Eos % (Auto) 0.0 L Baso % (Auto) 0.0 Neut # (Auto) 41473 H Lymph # (Auto) 400 L [place] # (Auto) 700 Eos # (Auto) 0 Baso # (Auto) 0 Sodium 127 L Potassium 3.7 Chloride 96 L Carbon Dioxide 21 L BUN 9 Creatinine 0.66 Estimated GFR > 60 BUN/Creatinine Ratio 13.6 Glucose 98 Lactate 0.7 Calcium 8.6 Magnesium 1.8 Total Bilirubin 0.9 AST 23 ALT 26 Alkaline Phosphatase 66 Total Protein 7.2 Albumin 4.0 Globulin 3.2 Albumin/Globulin Ratio 1.3 Lipase 19 L Procalcitonin Urine Color Urine Appearance Urine pH Ur Specific [place] Urine Protein Urine Glucose (UA) Urine Ketones Urine Occult Blood Urine Nitrate Urine Bilirubin Ur Bilirubin Confirm Urine Urobilinogen Ur Leukocyte Esterase Urine RBC Urine WBC Ur Squamous Epith Cells Urine Bacteria Hyaline Casts Ur Culture Indicated? 08/20/22 08/20/22 10:50 11:40 WBC RBC Hgb Hct MCV MCH MCHC RDW Plt Count Neut % (Auto) Lymph % (Auto) [place] % (Auto) Eos % (Auto) Baso % (Auto) Neut # (Auto) Lymph # (Auto) [place] # (Auto) Eos # (Auto) Baso # (Auto) Sodium Potassium Chloride Carbon Dioxide BUN Creatinine Estimated GFR BUN/Creatinine Ratio Glucose Lactate Calcium Magnesium Total Bilirubin AST ALT Alkaline Phosphatase Total Protein Albumin Globulin Albumin/Globulin Ratio Lipase Procalcitonin 1.68 H Urine Color Yellow Urine Appearance Clear Urine pH 6.0 Ur Specific [place] 1.020 Urine Protein Trace H Urine Glucose (UA) Negative Urine Ketones 3+ H Urine Occult Blood Negative Urine Nitrate Negative Urine Bilirubin 1+ H Ur Bilirubin Confirm Negative Urine Urobilinogen 0.2 Ur Leukocyte Esterase Negative Urine RBC 0-1/hpf Urine WBC 0-1/hpf Ur Squamous Epith Cells 0-1 /hpf Urine Bacteria None seen Hyaline Casts 0-1/lpf Ur Culture Indicated? Cult not indicated Assessment & Plan Assessment & Plan narrative: 1. Acute sigmoid diverticulitis with microperforation -no abscess on CT, mod ill with severe pain, low grade temp, elev WBC -treat with Zosyn, started in ED -prn Ketorolac IV 15 mg, hydromorphone IV 0.5-1 mg -prn Zofran -NS for IV hydration -clear liquid diet -repeat CBC in AM -repeat CT and consult surg if not improving after 48-72 hrs on IV abx -outpatient screening colonoscopy (has not had any type of screening in the past) 2. Acute hyponatremia -likely prerenal due to dehydration -addressed with IVF -BMP in AM Admit to Obs status Code status: Full DVT prevention: Lovenox Surrogate decision maker: spouse
[2022-08-20] MEDS: KETOROLAC 30 MG/ML VIAL 15 MG IV ×2 (14:43→20:45)
[2022-08-20] MEDS: PIPERACILLIN/TAZO 3.375 GM in SODIUM CHLORIDE 0.9% 100 ML IV (16:37)
[2022-08-21] VITALS (11 sets, daily range): BP systolic 107–128; BP diastolic 66–73; PULSE 66–90; RESP 16–18; TEMP 36.5–37.4; O2SAT 93–98
[2022-08-21] MEDS: PIPERACILLIN/TAZO 3.375 GM in SODIUM CHLORIDE 0.9% 100 ML IV ×3 (00:11→15:49)
[2022-08-21] MEDS: SODIUM CHLORIDE 0.9% 1,000 ML 100 ML IV (00:22)
[2022-08-21] MEDS: KETOROLAC 30 MG/ML VIAL 15 MG IV ×2 (04:12→11:29)
[2022-08-21 05:30] LABS: Add Manual Diff / Slide Review NO; Basophils Absolute Auto 0 /uL (0-100); Basophils Percent Auto 0.1 % (0-2); Eosinophils Absolute Auto 0 /uL (0-450); Eosinophils Percent Auto 0.4 % (2-4); Hematocrit 34.7 % (41-53); Hemoglobin 11.9 g/dL (13.5-17.5); Lymphocytes Absolute Auto 700 /uL (1100-4500); Lymphocytes Percent Auto 7.7 % (25-40); Mean Corpuscular HGB Conc 34.2 % (30-36); Mean Corpuscular Hemoglobin 30.7 PG (26-34); Mean Corpuscular Volume 89.6 fL (80-100); Monocytes Absolute Auto 700 /uL (0-900); Monocytes Percent Auto 8.2 % (3-14); Neutrophils Absolute Auto 7300 /uL (1500-7000); Neutrophils Percent Auto 83.6 % (50-75); Platelet Count 191 X10^3/uL (150-400); Red Blood Cell Count 3.87 X10^6/uL (4.5-5.9); Red Cell Distribution Width 14.8 % (11.6-14.8); White Blood Cell Count 8.7 X10^3/uL (4.5-11.0)
[2022-08-21 05:40] LABS: BUN Creatinine Ratio 13.9 (6-22); Blood Urea Nitrogen 11 mg/dL (9-20); Carbon Dioxide 22 mmol/L (22-32); Chloride 99 mmol/L (98-107); Estimated Glomerular Filt Rate > 60 mL/min (>60); Glucose 91 mg/dL (80-110); HEMOLYSIS < 15 (0-50); Potassium 3.6 mmol/L (3.4-5.1); Sodium 126 mmol/L (137-145)
[2022-08-21 05:56] LABS: Calcium 7.4 mg/dL (8.4-10.2)
[2022-08-21] MEDS: SODIUM CHLORIDE 1,000 MG TABLET 1000 MG PO ×3 (08:46→16:49)
--- NOTE | 2022-08-21 13:09 | CM.DANOTE ---
Patient is a 67 yo male who was admitted on 08/20/22 for Abd Pain. Pt has PRE [employer] M[facility] and [facility] for insurance and his PCP is Lisa Mills. EMR was reviewed. Per MD, pt with acute sigmoid diverticulitis and getting IV-Abx and some fluids but now needing fluid restriction due to sodium levels and if pt does not improve in 48-72 hours will consult Surgeon. 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 No bedside assessment at this time due to triage needs. Plan: SW to follow closely for pt progress to confirm safe for return home with Sig Other to [place] or if Surgeon Consult needed to r/o any further medical needs pending progress. SHON Carr
--- NOTE | 2022-08-21 16:31 | P.PN_ITS ---
Subjective Subjective Interval history: Patient's pain improved somewhat today. Tolerating chicken broth. No NV. Partner Katey present on phone and all questions were answered. Exam Vital Signs (past 8 hours): - 08/21/22 10:00 08/21/22 12:00 08/21/22 14:00 Temperature 98.7 F Pulse Rate 66 Respiratory Rate 16 Blood Pressure 128/72 Pulse Oximetry 94 98 98 Oxygen Delivery Method Room Air Room Air Oxygen Delivery Method Room Air Oxygen Flow Rate 0 Narrative Exam Narrative: Gen: alert, WD/WN male, NAD HEENT: pupils equal, EOMI neck: no enlarged LNs Lungs: clear to auscultation CV: nl S1, S2, RRR, no murmur Abd: NABS, tender and guarding LLQ, no HSM Ext: no edema Neuro: nl affect and speech, cognitive appears intact Objective Labs 08/21/22 05:20 08/21/22 05:20 Labs: Laboratory Results - last 24 hr 08/21/22 08/21/22 05:20 05:20 WBC 8.7 RBC 3.87 L Hgb 11.9 L Hct 34.7 L MCV 89.6 MCH 30.7 MCHC 34.2 RDW 14.8 Plt Count 191 Neut % (Auto) 83.6 H Lymph % (Auto) 7.7 L [place] % (Auto) 8.2 Eos % (Auto) 0.4 L Baso % (Auto) 0.1 Neut # (Auto) 7300 H Lymph # (Auto) 700 L [place] # (Auto) 700 Eos # (Auto) 0 Baso # (Auto) 0 Sodium 126 L Potassium 3.6 Chloride 99 Carbon Dioxide 22 BUN 11 Creatinine 0.79 Estimated GFR > 60 BUN/Creatinine Ratio 13.9 Glucose 91 Calcium 7.4 L [facility] Medical History (Updated 08/20/22 @ 12:15 by Raheel Gilbert PA-C) Right hip pain Surgical History (Updated 03/25/21 @ 21:52 by Yvrose Barriga) Anesthesia History of cataract removal with insertion of prosthetic lens (~2016) History of dental surgery (~2018) History of tonsillectomy Retinal tear of right eye (~2018) Family History (Updated 03/25/21 @ 21:56 by Yvrose Barriga) Father History of heart disease Hypertension Mother Diabetes mellitus History of heart disease Hypertension Hyperlipidemia Stroke Brother Stroke Sister Multiple sclerosis Grandfather History of heart disease Grandmother Diabetes mellitus History of heart disease Grandfather History of heart disease Stroke Social History household members: significant other Smoking Status: Former smoker Assessment & Plan Assessment & Plan narrative: 1. Acute sigmoid diverticulitis with microperforation -no abscess on CT, mod ill with severe pain, low grade temp, elev WBC -continue Zosyn -prn Ketorolac IV 15 mg, hydromorphone IV 0.5-1 mg -prn Zofran -clear liquid diet and advance as tolerated -repeat CT and consult surg if not improving after 48-72 hrs on IV abx -outpatient screening colonoscopy after diverticulitis has resolved (has not had any type of screening in the past) 2. Acute hyponatremia -likely prerenal due to dehydration -sodium dipped from 127 to 126 with IVF -fluid restrict and start salt tabs Admit to Obs status Code status: Full DVT prevention: Lovenox Surrogate decision maker: spouse Dispo: Pending improvement in abd pain, sodium and advancing of diet. Likely 1-2 more days.
--- NOTE | 2022-08-21 17:44 | PC.NURSE ---
Day shift: Patient continues with IV antibiotics Q8hrs. 1 episode of nausea this shift, no emesis. IV torodol given for pain. MD Dockery changed to oral pain medication in preparation for discharge tomorrow. Pt advanced diet from clear liquids to soft foods with directions to advance diet as tolerated. Pt tolerating well. OOB independently. IV fluids discontinued this AM and PO sodium ordered due to lab Na 126. Fluid restriction of 1500mL in 24hours. Pt states understanding. Will continue to monitor.
[2022-08-22] VITALS (7 sets, daily range): BP systolic 108–132; BP diastolic 64–73; PULSE 75–96; RESP 16–18; TEMP 36.3–37.2; O2SAT 94–98
[2022-08-22] MEDS: PIPERACILLIN/TAZO 3.375 GM in SODIUM CHLORIDE 0.9% 100 ML IV ×2 (00:17→07:56)
[2022-08-22] MEDS: ACETAMINOPHEN 325 MG TABLET 650 MG PO (07:55)
[2022-08-22 08:49] LABS: Add Manual Diff / Slide Review NO; Basophils Absolute Auto 0 /uL (0-100); Basophils Percent Auto 0.1 % (0-2); Eosinophils Absolute Auto 100 /uL (0-450); Eosinophils Percent Auto 1.1 % (2-4); Hematocrit 33.8 % (41-53); Hemoglobin 11.6 g/dL (13.5-17.5); Lymphocytes Absolute Auto 500 /uL (1100-4500); Lymphocytes Percent Auto 6.7 % (25-40); Mean Corpuscular HGB Conc 34.3 % (30-36); Mean Corpuscular Hemoglobin 30.7 PG (26-34); Mean Corpuscular Volume 89.6 fL (80-100); Monocytes Absolute Auto 600 /uL (0-900); Monocytes Percent Auto 8.9 % (3-14); Neutrophils Absolute Auto 5700 /uL (1500-7000); Neutrophils Percent Auto 83.2 % (50-75); Platelet Count 217 X10^3/uL (150-400); Red Blood Cell Count 3.77 X10^6/uL (4.5-5.9); Red Cell Distribution Width 14.7 % (11.6-14.8); White Blood Cell Count 6.8 X10^3/uL (4.5-11.0)
[2022-08-22 09:06] LABS: BUN Creatinine Ratio 8.5 (6-22); Blood Urea Nitrogen 6 mg/dL (9-20); Calcium 7.7 mg/dL (8.4-10.2); Carbon Dioxide 23 mmol/L (22-32); Chloride 101 mmol/L (98-107); Estimated Glomerular Filt Rate > 60 mL/min (>60); Glucose 100 mg/dL (80-110); HEMOLYSIS < 15 (0-50); Potassium 3.4 mmol/L (3.4-5.1); Sodium 130 mmol/L (137-145)
[2022-08-22] MEDS: ENOXAPARIN 40 MG/0.4 ML SYRINGE SUBCUT (09:22)
[2022-08-22] MEDS: SODIUM CHLORIDE 1,000 MG TABLET 1000 MG PO ×2 (09:22→12:33)
[2022-08-22] MEDS: POTASSIUM CHLORIDE 20 MEQ TAB 40 MEQ PO (11:18)
--- NOTE | 2022-08-22 12:48 | PM.DS.1 ---
History of Present Illness History of Present Illness Date Patient Seen: 08/20/22 Time Patient Seen: 14:15 Chief complaint: sent by [place]/abd pain/arythmia Narrative: Pt is 67 yo male without significant past medical history presents to ED with c/o worsening abdominal pain. Discomfort started 3 days ago in left lower abdomen. It got much worse last night. He has had low grade temp and chills, nausea without vomiting. He has not had prior episodes of similar pain. he has never had a colonoscopy. Ct scan showed sigmoid diverticulitis with microperforation, without abscess, and thickening in sigmoid. Labs WBC 12.8 with left shift, Na 127, K 3.7, Cr 0.66, UA 3+ ketones. EKG showed sinus arrythmia, 1st degree AVB. Pt had recent work up for PVCs including stress test at [facility] and told it was normal. Has right hip OA. 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 Discharge Providers Provider Date of admission: 08/20/22 12:29 Discharge Date: 08/22/22 Primary care physician: Lisa Mills PA-C Discharge provider: Parish Dockery DO Summary Hospital Course Discharge Diagnosis: 1. Acute sigmoid diverticulitis with microperforation -patient reports no prior episodes of diverticulitis -no abscess on CT, mod ill with severe pain, low grade temp, elev WBC -continue Zosyn -prn Ketorolac IV 15 mg, hydromorphone IV 0.5-1 mg -prn Zofran -clear liquid diet given and advanced to regular on day 2 with good results -outpatient screening colonoscopy after diverticulitis has resolved (has not had any type of screening in the past) 2. Acute hyponatremia, improved -likely prerenal due to dehydration -sodium dipped from 127 to 126 with IVF -fluid restrict and start salt tabs -improved to 130 Hospital Course: Admitted for acute abd pain in LLQ. CT abd showed sigmoid diverticulitis with microperforations. Patient placed on IV Zosyn and improved over 2 days. At the improved significantly and diet was advanced from clears to regular diet which he tolerated well. He was discharged on Augmentin 875 mg t.i.d. for 12 more days to complete 2 weeks. Patient had a low-sodium of 127 which decreased with IV fluids initially indicating likely SIADH. Was placed on fluid restriction and salt tabs and sodium improved to 130. Patient will increase his salt intake and decrease his free water. He will follow up with PCP to get referral for colonoscopy. Time Spent with Patient Time spent: Greater than 30 minutes Exam Vital Signs (past 8 hours): - 08/22/22 06:00 08/22/22 08:00 08/22/22 10:00 Temperature 98.2 F Pulse Rate 79 Respiratory Rate 16 Blood Pressure 124/72 Pulse Oximetry 98 94 97 Oxygen Delivery Method Room Air Room Air Oxygen Flow Rate 0 0 08/22/22 12:00 Temperature 97.3 F L Pulse Rate 75 Respiratory Rate 18 Blood Pressure 108/64 Pulse Oximetry 96 Oxygen Delivery Method Oxygen Flow Rate 0 Oxygen Delivery Method Room Air Oxygen Flow Rate 0 Narrative Exam Narrative: Gen: alert, WD/WN male, NAD HEENT: pupils equal, EOMI neck: no enlarged LNs Lungs: clear to auscultation CV: nl S1, S2, RRR, no murmur Abd: NABS, tender much improved, no guarding, no HSM Ext: no edema Neuro: nl affect and speech, cognitive appears intact Objective Labs 08/22/22 08:39 08/22/22 08:39 Labs: Laboratory Results - last 24 hr 08/22/22 08/22/22 08:39 08:39 WBC 6.8 RBC 3.77 L Hgb 11.6 L Hct 33.8 L MCV 89.6 MCH 30.7 MCHC 34.3 RDW 14.7 Plt Count 217 Neut % (Auto) 83.2 H Lymph % (Auto) 6.7 L [place] % (Auto) 8.9 Eos % (Auto) 1.1 L Baso % (Auto) 0.1 Neut # (Auto) 5700 Lymph # (Auto) 500 L [place] # (Auto) 600 Eos # (Auto) 100 Baso # (Auto) 0 Sodium 130 L Potassium 3.4 Chloride 101 Carbon Dioxide 23 BUN 6 L Creatinine 0.71 Estimated GFR > 60 BUN/Creatinine Ratio 8.5 Glucose 100 Calcium 7.7 L PFSH Medical History (Updated 08/20/22 @ 12:15 by Raheel Gilbert PA-C) Right hip pain Surgical History (Updated 03/25/21 @ 21:52 by Yvrose Barriga) Anesthesia History of cataract removal with insertion of prosthetic lens (~2017) History of dental surgery (~2018) History of tonsillectomy Retinal tear of right eye (~2018) Family History (Updated 03/25/21 @ 21:56 by Yvrose Barriga) Father History of heart disease Hypertension Mother Diabetes mellitus History of heart disease Hypertension Hyperlipidemia Stroke Brother Stroke Sister Multiple sclerosis Grandfather History of heart disease Grandmother Diabetes mellitus History of heart disease Grandfather History of heart disease Stroke Social History household members: significant other Smoking Status: Former smoker Discharge Plan Discharge Plan Patient Disposition: Home Provider Discharge Comment: You were admitted for diverticulitis. I have included some reading material for you to learn all about it. This improved with IV antibiotics and you will go home on 12 more days of oral antibiotics to complete 2 weeks. Please obtain a referral from your PCP for a colonoscopy. I have sent some pain medication as well. Your sodium levels were low so avoid drinking excess water and increase her salt intake for at least the short-term. Discharge orders & Medications Prescriptions: New amoxicillin-pot clavulanate 875-125 mg tablet 1 tab PO Q8H 12 Days Qty: 36 0RF Rx Instructions: start 08/22 at 8pm oxycodone-acetaminophen [Percocet] 5-325 mg tablet 1 tab PO Q4-6H PRN (Reason: pain) Qty: 10 0RF Continued melatonin 3 mg Tablet 3 mg PO QPM Rx Instructions: for sleep aspirin 325 mg Tablet 325 mg PO PRN PRN (Reason: pain) ibuprofen 400 mg Tablet 400 mg PO Q6H PRN (Reason: Pain (Scale Score 7-10)) Follow up/Referrals: Lisa Mills PA-C [Primary Care Provider] - 1 Week Visit Report/Discharge Packet Instructions: DI for Diverticulitis, DI for Hyponatremia Stand Alone Forms: Patient Portal/API, Stroke Signs & Symptoms Discharge Data Primary Care Provider: Lisa Mills Discharges patient from system. Discharge Date/Time: 08/22/22 13:53
== END 2022-08-22 13:53 | disposition home or self-care (01) | DRG 872 ==
LOC: ED 12:15 → AC 12:29
PROVIDERS: Student in an Organized Health Care Education/Training Program; Admitting Provider Internal Medicine; Emergency Provider Physician Assistant Medical; PCP Physician Assistant; Referring Provider Physician Assistant Medical; Visit Provider Internal Medicine
DX: A41.9 Sepsis, unspecified organism (principal); K57.20 Diverticulitis of large intestine with perforation and abscess without bleeding; E87.1 Hypo-osmolality and hyponatremia; Z20.822 Contact with and (suspected) exposure to COVID-19; E86.0 Dehydration; Z87.891 Personal history of nicotine dependence
CPT/HCPCS: 36415; 74177; 80048; 80053; 81001; 83605; 83690; 83735; 84145; 85025; 87040; 93005; 99284; 99285; J1650; J1885; J2543; Q9967

== ENCOUNTER → 2022-08-27 11:04 | Outpatient (CLI) | payer MEDICARE, MEDICAID, SELFPAY ==
[2022-08-20 13:08] VITALS: BMI 29.4
[2022-08-27 19:40] LABS: Alanine Aminotransferase 42 IU/L (<50); Albumin 3.6 g/dL (3.5-5.0); Albumin Globulin Ratio 1.2 (1.0-2.8); Alkaline Phosphatase 76 U/L (38-126); Aspartate Aminotransferase 36 IU/L (17-59); BUN Creatinine Ratio 16.4 (6-22); Bilirubin Total 0.4 mg/dL (0.2-1.3); Blood Urea Nitrogen 12 mg/dL (9-20); Carbon Dioxide 26 mmol/L (22-32); Chloride 99 mmol/L (98-107); Estimated Glomerular Filt Rate > 60 mL/min (>60); Globulin 3.1 g/dL (1.7-4.1); Glucose 95 mg/dL (80-110); HEMOLYSIS < 15 (0-50); Potassium 4.8 mmol/L (3.4-5.1); Sodium 132 mmol/L (137-145); Total Protein 6.7 g/dL (6.3-8.2)
[2022-08-27 19:54] LABS: Add Manual Diff / Slide Review NO; Basophils Absolute Auto 100 /uL (0-100); Basophils Percent Auto 1.2 % (0-2); Eosinophils Absolute Auto 300 /uL (0-450); Eosinophils Percent Auto 5.5 % (2-4); Hematocrit 37.5 % (41-53); Hemoglobin 12.6 g/dL (13.5-17.5); Lymphocytes Absolute Auto 1200 /uL (1100-4500); Lymphocytes Percent Auto 25.2 % (25-40); Mean Corpuscular HGB Conc 33.7 % (30-36); Mean Corpuscular Hemoglobin 29.9 PG (26-34); Mean Corpuscular Volume 88.9 fL (80-100); Monocytes Absolute Auto 700 /uL (0-900); Monocytes Percent Auto 14.4 % (3-14); Neutrophils Absolute Auto 2600 /uL (1500-7000); Neutrophils Percent Auto 53.7 % (50-75); Platelet Count 420 X10^3/uL (150-400); Red Blood Cell Count 4.22 X10^6/uL (4.5-5.9); Red Cell Distribution Width 14.7 % (11.6-14.8); White Blood Cell Count 4.9 X10^3/uL (4.5-11.0)
[2022-08-27 20:12] LABS: TSH w/ Reflex to FT4 0.47 uIU/mL (0.47-4.68)
== END ==
PROVIDERS: Family Medicine; PCP Physician Assistant; Visit Provider Physician Assistant
DX: R60.0 Localized edema (principal); E83.51 Hypocalcemia; E87.1 Hypo-osmolality and hyponatremia; K57.92 Diverticulitis of intestine, part unspecified, without perforation or abscess without bleeding
CPT/HCPCS: 80053; 84443; 85025

== ENCOUNTER 2022-11-17 12:56 | Day surgery (SDC) | payer MEDICARE, SELFPAY ==
[2022-08-20 13:08] VITALS: BMI 29.4
--- NOTE | 2022-11-17 | PATH_ITS ---
[facility] Accession Number: [id number] No. of containers..01 Tissue . 01 Material submitted: . cecum - CECAL POLYP . 01 Diagnosis: Cecal Polyp: Tubular adenoma. MRV 11/20/2022 1343 Local . 01 Electronically signed: . Parish Galeana MD, PhD, Pathologist NPI- [id number] . 01 Gross description: . CECAL POLYP: Received in formalin is 1 fragment(s) of reyes, soft tissue measuring 0.4 x 0.3 x 0.2 cm submitted entirely in 1 cassette(s) /AAY 11/19/2022 0040 Local . 01 Pathologist provided ICD-10: D12.0 . 01 CPT . 341683 Specimen Comment: A courtesy copy of this report has been sent to [phone] Performed at: 01 [facility] [address] [place] [address], [place], [place] [id number] MD Amrit Eaton MD Phone: [phone]
[2022-11-17 13:33] VITALS: BP 116/75; PULSE 82; RESP 16; TEMP 36.4; O2SAT 98; BMI 26.4
[2022-11-17] MEDS: LACTATED RINGERS 1,000 ML 150 ML IV (13:47)
--- NOTE | 2022-11-17 14:40 | PM.OP.COLON ---
Operative Date/Time/Diagnoses Date of procedure: 11/17/22 Time of procedure: 14:41 Pre-op diagnosis: Colorectal screening Post-op diagnosis: other (Colonic polyp x1) Procedure & Clinicians Study performed: Colonoscopy Same procedure as scheduled: Yes Indications: Colorectal screening Surgeon: Christopher Brooks Procedure Notes Procedure in detail: The history and physical was performed/updated and the patient is ASA class is 2. The procedure was discussed in detail with the patient. Potential risks complications including infection, bleeding, missed diagnosis, perforation, need for surgery, and were explained. Their questions were answered and informed consent was obtained. Patient was brought to the procedure room and placed standard monitoring equipment. The patient's vital signs were monitored continuously throughout the entire procedure. Prior to starting time-out was performed. The patient was placed in the left lateral recumbent position. Procedural sedation was administered by anesthesia. Examination began with a thorough inspection of the perianal area there was no evidence of fissures, fistulae, external hemorrhoids or cutaneous malignancy. The colonoscopy scope was then placed into the anal canal and was advanced to the cecum, which was identified by the ileocecal valve, the appendiceal orifice and the confluence of the taenia. The scope was then slowly withdrawn examining colon thoroughly in all directions, irrigating it of any residual stool. Cecum-5 mm polyp removed with biopsy forceps Mild diverticular disease The patient tolerated the procedure well. They will be discharged once criteria are met. The prep was of good/excellent quality. The withdrawl time was 6 minutes. Specimen(s): other (Ascending polyp) Complications: none Impression: Colonic polyp x1 Post-procedure Plan for aftercare: Follow-up is dependent on pathology findings, likely 5 years. Disposition: same day surgery
[2022-11-17 14:43] VITALS: BP 90/59; PULSE 84; RESP 15; TEMP 36.2; O2SAT 95
[2022-11-17 14:48] VITALS: BP 88/62; PULSE 74; RESP 15; TEMP 36.2; O2SAT 95
[2022-11-17 14:53] VITALS: BP 92/64; PULSE 69; RESP 13; TEMP 36.2; O2SAT 95
[2022-11-17 15:01] VITALS: BP 110/68; PULSE 67; RESP 12; O2SAT 95
--- NOTE | 2022-11-25 19:53 | PM.HP.1 ---
History of Present Illness History of Present Illness Date Patient Seen: 11/17/22 Chief complaint: SDC Narrative: The patient presents for colorectal screening. They have never had any previous examination for such. No personal or family history of colon cancer. He recently had an episode of complicated diverticulitis with micro perforation recovered without need for surgical intervention. [facility] Medical History Right hip pain Surgical History Anesthesia History of cataract removal with insertion of prosthetic lens (~2017) History of dental surgery (~2018) History of tonsillectomy Retinal tear of right eye (~2018) Family History Father History of heart disease Hypertension Mother Diabetes mellitus History of heart disease Hypertension Hyperlipidemia Stroke Brother Stroke Sister Multiple sclerosis Grandfather History of heart disease Grandmother Diabetes mellitus History of heart disease Grandfather History of heart disease Stroke Social History household members: significant other Smoking Status: Former smoker alcohol intake: current Meds Home Medications and Allergies Home Medications Medication Instructions Recorded Confirmed Type melatonin 3 mg tablet 3 mg PO QPM 08/20/22 11/24/22 History peg 3350-electrolytes 236 240 ml PO Q10M #4,000 mL 11/16/22 11/24/22 Rx gram-22.74 gram-6.74 gram-5.86 gram solution (Golytely) Allergies Allergy/AdvReac Type Severity Reaction Status Date / Time No Known Drug Allergies Allergy Verified 11/24/22 15:20 Exam Vital Signs (past 8 hours): Oxygen Delivery Method Room Air Narrative Exam Narrative: General adult man alert oriented no acute distress Assessment & Plan Assessment & Plan narrative: The patient requires colorectal screening and colonoscopy is recommended. Technical details were discussed. Risks, benefits, alternatives explained. Risks including but not limited to myocardial infarction, aspiration, bleeding, pain, missed lesion, incomplete examination, need for further radiographic studies, colonic perforation, and need for major abdominal surgery were discussed. All questions were answered to their satisfaction, and they are in agreement with this plan.
== END 2022-11-17 15:16 | disposition home or self-care (01) ==
PROVIDERS: PCP Family Medicine; Referring Provider Surgery; Visit Provider Surgery
PROC: 0DJD8ZZ Inspection of Lower Intestinal Tract, Via Natural or Artificial Opening Endoscopic (ICD-10-PCS; CPT 45378; principal; 2022-11-17 14:00)
DX: Z12.11 Encounter for screening for malignant neoplasm of colon (principal); K57.30 Diverticulosis of large intestine without perforation or abscess without bleeding; D12.0 Benign neoplasm of cecum
CPT/HCPCS: 45380; J2704

== ENCOUNTER → 2022-11-24 14:20 | Outpatient (CLI) | payer MEDICARE, SELFPAY ==
[2022-08-20 13:08] VITALS: BMI 29.4
[2022-11-24 19:10] LABS: Add Manual Diff / Slide Review NO; Basophils Absolute Auto 0 /uL (0-100); Basophils Percent Auto 0.8 % (0-2); Eosinophils Absolute Auto 200 /uL (0-450); Eosinophils Percent Auto 4.7 % (2-4); Hematocrit 39.8 % (41-53); Hemoglobin 13.7 g/dL (13.5-17.5); Lymphocytes Absolute Auto 1400 /uL (1100-4500); Lymphocytes Percent Auto 32.2 % (25-40); Mean Corpuscular HGB Conc 34.4 % (30-36); Mean Corpuscular Hemoglobin 30.9 PG (26-34); Mean Corpuscular Volume 89.7 fL (80-100); Monocytes Absolute Auto 500 /uL (0-900); Monocytes Percent Auto 12.1 % (3-14); Neutrophils Absolute Auto 2100 /uL (1500-7000); Neutrophils Percent Auto 50.2 % (50-75); Platelet Count 206 X10^3/uL (150-400); Red Blood Cell Count 4.44 X10^6/uL (4.5-5.9); Red Cell Distribution Width 16.1 % (11.6-14.8); White Blood Cell Count 4.2 X10^3/uL (4.5-11.0)
[2022-11-24 19:18] LABS: Appearance Urine UA CLEAR; Bilirubin Urine UA NEGATIVE (NEGATIVE); Color Urine UA YELLOW; Glucose Urine UA NEGATIVE (Negative); Ketones Urine UA NEGATIVE (NEGATIVE); Leukocyte Esterase Urine UA NEGATIVE (NEGATIVE); Nitrite Urine UA NEGATIVE (Negative); Occult Blood Urine UA NEGATIVE (Negative); Protein Urine UA NEGATIVE (Negative); Urobilinogen Urine UA 0.2 E.U./dL (0.2)
[2022-11-24 19:28] LABS: Bacteria Urine None Seen; Culture Indicated Urine Cult Not Indicated; RBC Urine 0-1/HPF (0-5/HPF); Squamous Epithelial Cell Urine 0-1 /HPF (0-5/HPF); WBC Urine None Seen (0-5/HPF)
[2022-11-24 19:31] LABS: Alanine Aminotransferase 27 IU/L (<50); Albumin Globulin Ratio 1.5 (1.0-2.8); Alkaline Phosphatase 64 U/L (38-126); Aspartate Aminotransferase 29 IU/L (17-59); BUN Creatinine Ratio 15.6 (6-22); Bilirubin Total 0.4 mg/dL (0.2-1.3); Blood Urea Nitrogen 12 mg/dL (9-20); Carbon Dioxide 26 mmol/L (22-32); Chloride 99 mmol/L (98-107); Estimated Glomerular Filt Rate > 60 mL/min (>60); Free T3, Triiodothyronine Free 3.66 pg/mL (2.77-5.27); Free T4, Direct Thyroxine 0.97 ng/dL (0.78-2.19); Globulin 2.7 g/dL (1.7-4.1); Glucose 96 mg/dL (80-110); HEMOLYSIS 18 (0-50); Potassium 4.2 mmol/L (3.4-5.1); Sodium 132 mmol/L (137-145); Total Protein 6.7 g/dL (6.3-8.2)
[2022-11-24 19:45] LABS: Thyroid Stimulating Hormone 0.649 uIU/mL (0.47-4.68)
[2022-11-26 10:09] LABS: Ionized Calcium 4.6 mg/dL (4.5-5.6)
== END ==
PROVIDERS: PCP Family Medicine; Visit Provider Orthopaedic Surgery
DX: N39.0 Urinary tract infection, site not specified (principal); R73.9 Hyperglycemia, unspecified; Z01.812 Encounter for preprocedural laboratory examination; E83.51 Hypocalcemia; E87.1 Hypo-osmolality and hyponatremia
CPT/HCPCS: 80053; 81001; 82330; 83036; 84439; 84443; 84481; 85025

== ENCOUNTER 2022-12-22 11:43 | Day surgery (SDC) | payer MEDICARE, SELFPAY ==
[2022-08-20 13:08] VITALS: BMI 29.4
[2022-12-16 09:34] VITALS: BMI 26.6
[2022-12-22] VITALS (10 sets, daily range): BP systolic 103–130; BP diastolic 63–96; PULSE 68–98; RESP 12–19; TEMP 35.8–36.4; O2SAT 92–99; BMI 26.6; BMI 25.4
--- NOTE | 2022-12-22 | DI.RAD.S_ITS ---
PROCEDURE: XR HIP W PEL IF DONE RT 2V INDICATIONS: RIGHT ANTERIOR HIP TECHNIQUE: 11 intraoperative views of the pelvis and right hip. COMPARISON: [facility] [place], CR, XR PELVIS WITH LATERAL HIP RIGHT, 12/09/2022, 11:50. [facility], CR, XR HIP W PEL IF DONE RT 2V, 12/22/2022, 19:03. [facility] ([place]), CR, XR HIP W PEL IF DONE RT 2V, 06/18/2022, 10:15. FINDINGS: Right hip arthroplasty projects in the expected location. IMPRESSION: Intraoperative guidance provided. Dictated by: Bruce Perera M.D. on 12/22/2022 at 19:37 Approved by: Bruce Perera M.D. on 12/22/2022 at 19:38
--- NOTE | 2022-12-22 06:00 | DI.RAD.S_ITS ---
PROCEDURE: XR HIP W PEL IF DONE RT 2V INDICATIONS: JESÚS TECHNIQUE: AP pelvis and lateral view of the right hip acquired. COMPARISON: [facility], CR, XR HIP W PEL IF DONE RT 2V, 12/22/2022, 17:03. [facility] ([place]), CR, XR HIP W PEL IF DONE RT 2V, 06/18/2022, 10:15. FINDINGS: Bones: Patient is status post right hip arthroplasty, with hardware components in expected positions. The hip joint appears congruent. The visualized bony structures appear intact. Soft tissues: Overlying postoperative changes are noted. No suspicious soft tissue densities. IMPRESSION: Expected postoperative appearance of right hip arthroplasty. Dictated by: Antonio Alberto M.D. on 12/23/2022 at 8:49 Approved by: Antonio Alberto M.D. on 12/23/2022 at 8:49
[2022-12-22] MEDS: LACTATED RINGERS 1,000 ML 42 ML IV ×2 (12:20→16:26)
[2022-12-22] MEDS: PREGABALIN 75 MG CAPSULE PO (12:39)
[2022-12-22] MEDS: ACETAMINOPHEN 325 MG TABLET 975 MG PO (12:40)
--- NOTE | 2022-12-22 15:42 | PM.PREOP ---
Pre-operative Note Interval Note History & Physical reviewed/Exam performed by Physician: Yes Changes to H&P: No
[2022-12-22] MEDS: CEFAZOLIN 2 GM/100 ML PREMIX 100 ML IV (15:45)
[2022-12-22] MEDS: TRANEXAMIC ACID 1,000 MG VIAL 1000 MG INJ ×2 (15:50→18:17)
--- NOTE | 2022-12-22 16:11 | SUR.OPER ---
Supine on padded Bartley table with bilateral legs secured in padded positioning boots and suspended in positioning spars, operative leg in traction per surgeon. Head on one pillow. Arm on non-operative side secured on padded armboard <90 degrees abduction. Arm on operative side padded and resting across chest then secured with tape over sheet. Padded perineal post in place per surgeon.
--- NOTE | 2022-12-22 16:17 | SUR.OPER ---
Patient received 1g dose of Vancomycin according to order. 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 Upon picking up patient at approximately 1550, the medication had just finished infusing.
[2022-12-22] MEDS: BUPIVACAINE LIPOSOME 266 MG/20 ML VIAL INJ (18:28)
[2022-12-22] MEDS: BUPIVACAINE 0.25% (PF) 60 ML, EPINEPHrine 0.3 MG INJ (18:28)
--- NOTE | 2022-12-22 19:15 | PM.OP.1 ---
Operative Date/Time/Diagnoses Date of procedure: 12/22/22 Time of procedure: 15:00 Pre-op diagnosis: right hip OA Post-op diagnosis: same Procedure & Clinicians Procedure: right total hip arthroplasty anterior approach Same procedure as scheduled: Yes Indications: The patient has had progressively worsening right hip pain with radiographic changes consistent with arthritis. Non-operative management has failed and the patient has requested total hip replacement. The risks, benefits and alternatives to surgery were discussed with the patient prior to proceeding. Risks discussed included, but were not limited to, failure to relieve pain, leg length discrepancy, dislocation, stiffness, infection, nerve damage, deep venous thrombosis, pulmonary embolism, stroke, coma, heart attack, permanent paralysis and , as well as the potential need for eventual revision of the prosthetic. Surgeon: Farida Kim Club Concierge: Lincoln Luna Anesthesia Type: General and Spinal Operative Notes Findings: Severe right hip osteoarthritis with multiple loose bodies especially in the anterior aspect of the hip, some tendency towards anterior instability which was corrected by stem version and increased offset. Adequate bone Closure Type: primary Specimen(s): none sent Prosthetic devices, grafts, tissues, transplants, or devices: Kim and nephew R3 size 58, neutral poly liner, size 6 polar stem lateralized with collar, +4 Oxinium head, one 6.5 mm screw Estimated Blood Loss (mL): 250 Blood products transfused: none Procedure in detail: The patient was brought to the operating room. Patient was carefully positioned in the supine position. Time-out was performed and antibiotics were given. Anesthesia was induced. He was positioned in the on the table in order to allow hyperextension of the hip. The right lower extremity was prepped and draped in a standard sterile fashion. An anterior right hip incision was made 1 fingerbreadth lateral to the anterior superior iliac spine and extended distally towards the greater trochanter. Dissection was carried out through skin and subcutaneous tissues. Superficial hemostasis was achieved. The fascia over the tensor fascia chao was defined and incised with a knife. Two Allis clamps were used to grasp the fascia. Tensor fascia chao was retracted laterally. A gelpi retractor was placed. Dissection was carried out down along the neck. The circumflex vessels were carefully identified and cauterized with the Aqua Mantis. A PA was used throughout the procedure and was essential for intraoperative retraction and safe implantation of the components. There was good visualization of the femoral neck. A Cobra was placed superior to the neck and the gluteus fibers were carefully stripped from that superior aspect of the capsule. A 2nd retractor was placed along the inferior aspect of the neck. The rectus insertion along the capsule was partially released. A 3rd retractor that was then gently placed over the rim of the acetabulum under the rectus. Capsule was carefully incised and released from the intertrochanteric line circumferentially superior to the mid sagittal line and inferiorly to the mid sagittal line until the lesser trochanter was palpable. A tag stitch was placed both in the superior and inferior limb of the capsular insertion. Along the acetabulum capsule was also released up to the mid sagittal 12:00 position. A portion of the labrum was resected. A saw was used to perform an osteotomy at the level of the intertrochanteric line and the junction of the superior femoral neck leaving approximately 1 finger breath of residual inferior neck above the lesser trochanter. A 2nd cut was made along the femoral neck at the base of the head and a napkin ring of neck was removed. Corkscrew was placed in the femoral head and the head was removed without difficulty. Retractors were then repositioned around the acetabulum. Residual labrum was resected and additional osteophytes were removed. A reamer that was 4 mm below the templated size was placed by hand in the acetabulum and it was reamed to centralize the acetabulum. It was then reamed up to 2 under the templated size and fluoroscopy was brought in to confirm the position of the reaming and depth of reaming. I reamed 1 under the anticipated size. A trial cup was placed and noted that it was appropriately sized and fluoroscopy confirmed position and depth. The component was open and inserted without difficulty fluoroscopic imaging was used to confirm that the cup had been adequately seated and was well positioned. It was further stabilized with a single screw. Neutral poly liner was placed. The cup was tested and noted to be stable. Attention was then directed to the femur. The femur was gently hyperextended additional capsular release was performed as needed in order to allow adequate visualization of the proximal femur with elevation of the femur. Patient was placed in a hyperextended slightly adducted position with maximum external rotation. Box osteotome was used to check for any residual neck as well as sclerotic bone along the trochanter. [place] pepper was placed in the femur. Additional broaching was performed. Canal finder was used to determine the alignment of the canal and position. Size 1 broach was placed. The canal was then appropriately broached up to the templated size as long as there was adequate stability of the broach and serial advancement of the broach without excessive impingement. Specific attention was directed at avoiding varus attempting to direct the distal aspect of the broach more anteriorly and avoiding excessive anteversion. Trial reduction showed acceptable range of motion, there was a tendency toward anterior instability in hyperextension at 60?, there was no posterior impingement, synagogue of leg length and appropriate lateral shuck. I did several different trials including trying a 0 and a +4 neck and also going with a more lateralized prosthesis. I rechecked the overall position with fluoro. I also checked the version on the skin stem and felt that by likely had a little bit of excessive anteversion. I then took out the prosthesis and specifically placed the prosthesis with less femoral anteversion and was able to go from a size 4 to a size 6 polar with good bony contact and adequate femoral canal space and fill. I was able to achieve reconstruction that showed no tendency towards anterior instability with maximum hyperextension and 60? of external rotation without evidence of impingement. I also hyperflexed the hip and checked that there was no impingement anteriorly and there was good stability with flexion, adduction and internal rotation. Marcaine and Exparel were injected. The stem was placed without difficulty. Repeat trial reduction and x-ray showed acceptable overall position, length, and no evidence of the femoral fracture. Final head was placed. Wound was meticulously irrigated with normal saline. The hip was reduced and additional Exparel and Marcaine were injected. The capsule was closed with interrupted nonabsorbable sutures. The fascia of the tensor was closed with interrupted and running Vicryl. No drain was placed. Any tensor fascia chao muscle that appeared to be contused or injured which was a minimal amount was carefully resected. Capsule around the tensor was injected with Exparel and Marcaine. The skin was closed with barbed stitches for the subcutaneous tissue and skin. We also used surgical glue. The wound was dressed sterilely. Brief Betadine soak was also used and was meticulously irrigated with normal saline. Patient was transferred to recovery room in satisfactory condition. Complications: none Post-operative Condition: stable Disposition: Acute Care Plan for aftercare: The patient will be maintained on a standard total hip replacement protocol with weight bearing as tolerated and anterior hip precautions. The patient will receive Aspirin and sequential compression devices for DVT prophylaxis. The patient will be discharged home when safe for the home environment.
[2022-12-22] MEDS: ASPIRIN EC 81 MG TABLET PO (21:50)
[2022-12-22] MEDS: AMOXICILLIN/CLAV 875/125 MG 1 TAB PO (21:50)
[2022-12-22] MEDS: LACTATED RINGERS 1,000 ML 100 ML IV (21:51)
[2022-12-22] MEDS: DOCUSATE 100 MG CAPSULE PO (21:51)
[2022-12-22] MEDS: ACETAMINOPHEN 325 MG TABLET 650 MG PO (21:52)
[2022-12-23] MEDS: CEFAZOLIN 2 GM/100 ML PREMIX 100 ML IV ×2 (01:50→08:11)
[2022-12-23] MEDS: OXYCODONE IR 5 MG TABLET PO ×3 (01:51→10:18)
[2022-12-23 05:10] VITALS: BP 104/67; PULSE 76; RESP 18; TEMP 36.1; O2SAT 97
[2022-12-23] MEDS: AMOXICILLIN/CLAV 875/125 MG 1 TAB PO ×2 (05:14→11:56)
[2022-12-23] MEDS: ACETAMINOPHEN 325 MG TABLET 650 MG PO ×2 (05:15→20:08)
[2022-12-23 06:45] LABS: Hematocrit 36.7 % (41-53); Hemoglobin 12.6 g/dL (13.5-17.5)
--- NOTE | 2022-12-23 07:15 | PM.DS.1 ---
History of Present Illness History of Present Illness Date Patient Seen: 12/23/22 Time Patient Seen: 07:15 Chief complaint: OPB Narrative: Operative Date/Time/Diagnoses Date of procedure: 12/22/22 Time of procedure: 15:00 Pre-op diagnosis: right hip OA Post-op diagnosis: same Procedure & Clinicians Procedure: right total hip arthroplasty anterior approach Same procedure as scheduled: Yes Indications: The patient has had progressively worsening right hip pain with radiographic changes consistent with arthritis. Non-operative management has failed and the patient has requested total hip replacement. The risks, benefits and alternatives to surgery were discussed with the patient prior to proceeding. Risks discussed included, but were not limited to, failure to relieve pain, leg length discrepancy, dislocation, stiffness, infection, nerve damage, deep venous thrombosis, pulmonary embolism, stroke, coma, heart attack, permanent paralysis and , as well as the potential need for eventual revision of the prosthetic. Surgeon: Farida Kim Under Water Assistant: Lincoln Luna Anesthesia Type: General and Spinal Operative Notes Findings: Severe right hip osteoarthritis with multiple loose bodies especially in the anterior aspect of the hip, some tendency towards anterior instability which was corrected by stem version and increased offset. Adequate bone Closure Type: primary Specimen(s): none sent Prosthetic devices, grafts, tissues, transplants, or devices: Kim and nephew R3 size 58, neutral poly liner, size 6 polar stem lateralized with collar, +4 Oxinium head, one 6.5 mm screw Estimated Blood Loss (mL): 250 Blood products transfused: none Discharge Providers Provider Discharge Date: 12/23/22 Primary care physician: Cesia Aguirre MD Consults: 12/22/22 06:00 Consult to Anesthesiology Routine Comment: Consulting Provider: Anesthesiologist Reason for consultation: Regional block for post operative pain control 12/22/22 19:51 Consult to Discharge Planning Routine Comment: Consult to Occupational Therapy Evaluate & Treat Comment: Physician Instructions: Evaluate and treat Consult to Physical Therapy Evaluate & Treat Comment: Physician Instructions: post op JESÚS protocol Discharge provider: Janie Castellon PA-C Summary Hospital Course Discharge Diagnosis: Right hip osteoarthritis, s/p right total hip arthroplasty Hospital Course: Mr Echavarria's hospital course was unremarkable. On the morning of POD# 1 he was feeling well and wanted to go home. He was eating and voiding without difficulty and his pain was well-controlled with oral medication. He had not yet been evaluated by PT at the time of my visit. Exam Vital Signs (past 8 hours): - 12/23/22 05:10 Temperature 97 F L Pulse Rate 76 Respiratory Rate 18 Blood Pressure 104/67 Pulse Oximetry 97 Oxygen Delivery Method Room Air Oxygen Flow Rate 6 Narrative Exam Narrative: 5/5 strength in hip flexors, quadriceps, hamstrings, DF, PF, EHL on right. Sensation to light touch intact throughout RLE. Calf soft and compressible. Dressing CDI. Objective Labs 12/23/22 06:13 Labs: Laboratory Results - last 24 hr 12/23/22 06:13 Hgb 12.6 L Hct 36.7 L PFSH Medical History (Updated 12/16/22 @ 10:09 by Maame Chopra RN) Osteoarthritis Right hip pain Surgical History (Updated 12/23/22 @ 07:21 by Janie Castellon PA-C) Cataract extraction status of left eye (~05/2022) Hx of colonoscopy (11/17/22) Anesthesia History of dental surgery (~2017) History of cataract removal with insertion of prosthetic lens (~2016) Retinal tear of right eye (~2017) History of tonsillectomy Family History Father History of heart disease Hypertension Mother Diabetes mellitus History of heart disease Hypertension Hyperlipidemia Stroke Brother Stroke Sister Multiple sclerosis Grandfather History of heart disease Grandmother Diabetes mellitus History of heart disease Grandfather History of heart disease Stroke Social History household members: significant other Smoking Status: Former smoker alcohol intake: current Discharge Assessment & Plan Assessment and Plan Assessment: Right hip osteoarthritis, s/p right total hip arthroplasty Plan of Treatment: Discharge home after PT if PT agrees. Multimodal pain control, ASA BID x 6 weeks for VTE prophylaxis, outpt PT, f/u in office in 2 weeks as scheduled. Discharge Plan Discharge Plan Patient Disposition: Home Discharge orders & Medications Discharge Orders: Discharge (Order); Ordered 12/23/22 Ordered By: Janie Castellon Prescriptions: New oxycodone 5 mg Tablet 5 mg PO Q4-6H PRN (Reason: Pain, Moderate (4-6)) Qty: 60 0RF acetaminophen 325 mg Tablet 650 mg PO Q6H PRN (Reason: Fever/Mild Pain (1-3)) Qty: 240 0RF ibuprofen 400 mg Tablet 400 mg PO Q4H PRN (Reason: Pain, Mild (1-3)) Qty: 120 0RF aspirin 81 mg Tablet,Delayed Release (Dr/Ec) 81 mg PO BID Qty: 90 0RF docusate sodium 100 mg Capsule 100 mg PO BID PRN (Reason: constipation) Qty: 60 1RF Continued amoxicillin-pot clavulanate 875-125 mg tablet 1 tab PO Q8H Discontinued oxycodone-acetaminophen 5-325 mg tablet 1 tab PO Q4-6H PRN (Reason: pain) Follow up/Referrals: Cesia Aguirre MD [Primary Care Provider] - Farida Kim MD [Physician] - As previously scheduled (Follow up with Dr Kim on 01/06/2023 @ 11:00 am at [facility].) Diet/Activity/Treatments Diet: Diet as Tolerated Activity: Weightbearing as tolerated to right leg. Anterior hip precautions. Cold/Heat Therapy: Ice to hip as needed for pain. Skin/Wound/Dressing Care Report to your healthcare provider any signs of infection, such as:: chills, fever, night sweats, unusual drainage and unusual redness Dressing: May shower. Leave Aquacel dressing in place until follow up in office. No bathing or otherwise soaking incision. Call the office if the dressing becomes saturated inside. Visit Report/Discharge Packet Instructions: DI for Hip Replacement, DI for Prescription Opioid Use Stand Alone Forms: Patient Portal/API, Surgery Discharge Discharge Data Primary Care Provider: Cesia Aguirre Attending Provider: Farida Kim
[2022-12-23] MEDS: DOCUSATE 100 MG CAPSULE PO ×2 (08:12→20:08)
[2022-12-23] MEDS: ASPIRIN EC 81 MG TABLET PO ×2 (08:12→20:08)
--- NOTE | 2022-12-23 08:45 | OT.IP.EVAL ---
Current Diagnoses Unilateral primary osteoarthritis, right hip (12/22/22) Presence of unspecified artificial hip joint (12/22/22) Surgery Performed Operation Date: 12/22/22 13:45 Actual Procedures p Total Hip Arthroplasty/Anterior Approach(Right) - Farida Kim MD Past Medical History (Last Updated 12/16/22 @ 10:09 by Maame Chopra RN) Osteoarthritis Right hip pain Surgical History (Last Updated 12/16/22 @ 10:09 by Maame Chopra RN) Anesthesia Cataract extraction status of left eye (~05/2022) History of cataract removal with insertion of prosthetic lens (~2016) History of dental surgery (~2017) History of tonsillectomy Hx of colonoscopy (11/17/22) Retinal tear of right eye (~2017) Occupational Therapy Inpatient Evaluation/Re-Eval M1 PT/OT-IP Prior Functional Status Start: 12/23/22 11:41 Freq: NEEDED Status: Active Protocol: Document 12/23/22 08:45 [facility] (Rec: 12/23/22 12:03 [facility] [id number]) Medical Review Prior Functional Status Medical History Reviewed Yes Communication Independent Mobility and Gait Pt states could only walk 30 seconds at a time due to his pain. Pt did not use a device to walk with per pt. Activities of Daily Living and IADL's Pt states had pain with ADL and IADl needs. Prior Functional Level (Other details) Pt's to be able to assist him. Social History Household Members significant other Living Arrangements House Number of Floors (Floors) Two Floors Number of Stairs To Enter/Railing? Pt states will use an ATV to drive closer to the house which has a step to be able to get into and then has 2 steps with no rails to get into the house. Home Environment High Toilet,Walk in Shower,Tub /Shower Home Equipment Front Wheel Walker,Straight Cane Additional Social History Comment Pt states get out of the left side of bed and has the tub/ shower downstairs and walk in shower upstairs. M2 OT-IP Current Condition Start: 12/23/22 11:41 Freq: Status: Active Protocol: Document 12/23/22 08:45 [facility] (Rec: 12/23/22 12:03 [facility] [id number]) Occupational Therapy Current Condition Current Condition Evaluation Date 12/23/22 Treatment Diagnosis S/P R JESÚS Anterior approach Diagnosis Onset Date 12/22/22 Post Operative Precautions Anterior Hip Precautions No Hip Extension,No Hip External Rotation M3 OT- IP Subjective and Pain Start: 12/23/22 11:41 Freq: Status: Active Protocol: Document 12/23/22 08:45 [facility] (Rec: 12/23/22 12:03 [facility] [id number]) OT- Subjective Occupational Therapy Visit Type Type Initial Evaluation Visit Start Time 08:45 Visit Stop Time 09:11 Total Visit Minutes 26 Occupational Therapy Visit Comments Patient Comments Pt wanting to get up and pt's in the room. Patient/Caregiver Goals To go home. OT Pain Assessment Pain When Pain Assessed During Mobility Pain Present Pain Present Pain Reported Location RIGHT HIP Intensity 6 Scale Used Numeric (0 - 10) M4 OT- IP ADL's Start: 12/23/22 11:41 Freq: Status: Active Protocol: Document 12/23/22 08:45 [facility] (Rec: 12/23/22 12:03 [facility] [id number]) OT [id number] General Evaluation Self-Feeding Ability Independent OT ADL-Grooming Comments OT Grooming Comments Not performed. OT ADL-Oral Care Comments Oral Care Comments NOt performed. OT ADL-Dressing Comments OT Dressing Comments Pt having low BP, not able to perform. Able to begin to educate pt that it will be best to delon his RLE first and take out last. Emphasized for pt not to externally rotate his RLE out. OT ADL-Toileting Comments OT Toileting Comments Not performed, pt looking to take the urinal home to use at night. OT ADL-Bathing Comments OT Bathing Comments Not performed. Pt would benefit from a shower chair/ tub bench but states to just sponge off for now. M5 OT- IP IADL's Start: 12/23/22 11:41 Freq: Status: Active Protocol: Document 12/23/22 08:45 [facility] (Rec: 12/23/22 12:03 [facility] [id number]) OT-Instrumental Activities of Daily Living Deficits IADL Deficits Identified Deficits Home Safety Awareness Awareness of Need for Assistance at Home Good Awareness Ability to Problem Solve Emergency Able to Problem Solve Situations Home Safety Comments Pt's to assist at this time. Medication Management Medication Management Comments Pt to assist as needed. Money Management Money Management Comments Pt's to assist as needed. Meal Preparation Meal Preparation Caregiver Provides Assist Instrument Setter Instrument Setter Caregiver Provides Assist M6 OT- IP Functional Cognition Start: 12/23/22 11:41 Freq: Status: Active Protocol: Document 12/23/22 08:45 [facility] (Rec: 12/23/22 12:03 [facility] [id number]) Cognitive Factors Limiting Selfcare Function Cognitive Ability Level of Alertness Alert Patient Orientation Name,Age,Birthday,Month,Date, Year,Day of Week,Place, Situation Attention Span Ability Capable of Focused Attention, Capable of Sustained Attention Ability to Follow Commands Able to Follow One Step Commands Cognitive Comments Cognitive Assessment Comments Pt able to follow commands and needing initial education for his hip precautions. OT- Vision and Hearing OT- Hearing Assessment OT- Hearing Assessment WFL OT- Vision Assessment Visual Acuity Glasses For Reading M7 OT- IP Mobility and Balance Start: 12/23/22 11:41 Freq: Status: Active Protocol: Document 12/23/22 08:45 [facility] (Rec: 12/23/22 12:03 [facility] [id number]) OT- Bed Mobility Assessment Supine to Sit Supine to Sit Assist Moderate Assistance Sit to Supine Sit to Supine Assist Moderate Assistance Scooting Scooting to Edge of Bed Contact Guard Assistance OT-Transfer Assessment Sit to and From Stand Sit to and from Stand Minimal Assistance Comments Mobility Comments BP supine 99/56, sitting 108/ 52 and 91/56 , and standing 74 /38 -pt feelng whoozy and sweaty and got pt back to bed. Pt needing assist for RLE management and not able to lift if up on his own at this time. OT- Balance Assessment Sitting Balance and Reactions Static Sitting Balance Ability Good Dynamic Sitting Balance Ability Good Standing Balance and Reactions Static Standing Balance Ability Fair M8 OT- IP Objective Assessments Start: 12/23/22 11:41 Freq: Status: Active Protocol: Document 12/23/22 08:45 [facility] (Rec: 12/23/22 12:03 [facility] [id number]) OT Gross Range of Motion Upper Extremity Range of Motion Assessment Within Functional Limits OT Strength Upper Extremity Strength Assessment Within Functional Limits M9 OT- IP Assessment and Plan Start: 12/23/22 11:41 Freq: Status: Active Protocol: Document 12/23/22 08:45 [facility] (Rec: 12/23/22 12:03 [facility] [id number]) OT Summary Assessment and Plan Potential Rehabilitation Potential Good Analytic Complexity at Evaluation Low Summary OT Impairments Pain,Functional Mobility, Dressing,Toileting,Bathing, Toilet Transfers,Shower Transfers,Activity Tolerance Progress Towards Goals Slow Progress due to Pain,Slow Progress due to Medical Issues Assessment Summary Pt LOW complexity and main barriers are orthostatic, steps, and needing assist for ADL and mobility needs at this time. Pt has a supportive to be able to assist him when medically stable. Pt to go home with assist and outpt PT. Goals Grooming Goal Independent Dressing Goal Independent Toileting Goal Independent Bathing Goal Independent Toilet Transfer Goal Independent Shower Transfer Goal Independent Patient/Caregiver Education Goal Caregiver Independent Assisting Patient Days to Meet Goals 7 Frequency of Treatment Frequency Of Treatment Once a Day Treatment Plan OT Treatment Plan ADL Training,Functional Mobility,Patient/Family Education,Discharge Planning Other Treatment Recommendations and Next LB dressing/shower Treatment Focus Discharge Recommendations OT Discharge Recommendations Home with Assistance, Outpatient PT Home Equipment Needs showr chair/tub bench, LB dressing equipment Transportation Needs at Discharge Private Vehicle
[2022-12-23] MEDS: IBUPROFEN 400 MG TABLET PO ×2 (09:39→16:49)
--- NOTE | 2022-12-23 11:20 | PT.IIE ---
Current Diagnoses Unilateral primary osteoarthritis, right hip (12/22/22) Presence of unspecified artificial hip joint (12/22/22) Surgery Performed Operation Date: 12/22/22 13:45 Actual Procedures p Total Hip Arthroplasty/Anterior Approach(Right) - Farida Kim MD Surgical History (Last Updated 12/16/22 @ 10:09 by Maame Chopra, RN) Anesthesia Cataract extraction status of left eye (~05/2022) History of cataract removal with insertion of prosthetic lens (~2016) History of dental surgery (~2017) History of tonsillectomy Hx of colonoscopy (11/17/22) Retinal tear of right eye (~2017) Medical History (Last Updated 12/16/22 @ 10:09 by Maame Chopra, LOPEZ) Osteoarthritis Right hip pain Physical Therapy Inpatient Evaluation/Re-Eval M1 PT/OT-IP Prior Functional Status Start: 12/23/22 12:38 Freq: NEEDED Status: Active Protocol: Document 12/23/22 11:20 AB (Rec: 12/23/22 12:53 AB [id number]) Medical Review Prior Functional Status Medical History Reviewed Yes Communication able to make needs known Mobility and Gait pt stated that he was independent with all mobilities and ambulation without AD but has been using a SPC for a few days due to hip pain Activities of Daily Living and IADL's per OT note: Pt states had pain with ADL and IADl needs. Social History Household Members spouse Living Arrangements House Number of Floors (Floors) Two Floors Number of Stairs To Enter/Railing? 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 M2 PT-IP Current Condition Start: 12/23/22 12:38 Freq: NEEDED Status: Active Protocol: Document 12/23/22 11:20 AB (Rec: 12/23/22 12:53 AB [id number]) Physical Therapy Current Condition Current Condition Evaluation Date 12/23/22 Treatment Diagnosis s/p R JESÚS anterior appraoch; difficulty in walking Onset Date 12/22/22 M3 PT-IP Subjective Start: 12/23/22 12:38 Freq: NEEDED Status: Active Protocol: Document 12/23/22 11:20 AB (Rec: 12/23/22 12:53 AB [id number]) Subjective Physical Therapy Visit Type Type Initial Evaluation Visit Start Time 11:20 Visit Stop Time 12:12 Total Visit Minutes 52 Number of ABRASIVE COATING MACHINE OPERATOR Visits 0 Physical Therapy Visit Comments Patient Comments agreeable to do PT Therapy Pain Assessment Pain When Pain Assessed At Rest Pain Present Pain Present Pain Reported Location RIGHT HIP Intensity 6 Scale Used Numeric (0 - 10) Pain Behaviors Facial Grimacing,Guarding, Holding Area Pain Management Techniques Apply Cold,Distraction, Modification of Treatment,Re- positioning,Timing of Activity with Medications M4 PT-IP Mobility and Gait Start: 12/23/22 12:38 Freq: NEEDED Status: Active Protocol: Document 12/23/22 11:20 AB (Rec: 12/23/22 12:53 [id number]) PT-Bed Mobility Assessment Supine to Sit Supine to Sit Maximum Assistance PT-Transfer Assessment Sit to and From Stand Sit to and from Stand Moderate Assistance,Maximum Assistance,1 Person Assistance ,Use of Upper Extremities Equipment Transfer Assistive Device Gait Belt,Front Wheeled Walker Orthotic/Prosthetic Devices or Brace: No Transfers Transfer Destination Chair Transfer Technique Stand Step Pivot Transfer Ability Level of Assist Moderate Assistance,Maximum Assistance,1 Person Assistance ,Use of Upper Extremities Comments Mobility Comments pt supine in bed and agreeable to do PT. educated on anterior hip precautions. reviewed post-op folder contents and HEP. BP in supine: 106/64. pt completed heel slides prior to mobility. completed supine to sit max A and max cues. needs assist with RLE movement . able to sit on EOB SBA. c/ o slight dizziness. BP in sittin/63. pt tolerated 2 more minutes of sitting and symptoms stable. BP: 92/56. pt completed sit to stand mod to max A and max cues and step transfer to chair mod to max A and max cues using FWW> (+) slight buckling of R knee during transfers. cued for quads activation. BP sitting on the chair after transfer: 78/50 from L UE. rechecked on RLE: 75/51. pt rested for a few minutes sitting on the chair. BP: 86/56. pt stated that dizziness/lightheadedness is the same and not worse. positioned pt on the chair and reclined . BP rechecked: 90 /55. call light and table placed within reach. Gait Assessment Comments Gait Comments not attempted due to low BP PT-Balance Assessment Sitting Balance and Reactions Static Sitting Balance Ability Good Dynamic Sitting Balance Ability Good Standing Balance and Reactions Static Standing Balance Ability Fair Dynamic Standing Balance Ability Fair Device Used FWW M5 PT-IP Objective Assessments Start: 12/23/22 12:38 Freq: NEEDED Status: Active Protocol: Document 12/23/22 11:20 AB (Rec: 12/23/22 12:53 AB [id number]) Orientation Orientation/Cognition Level of Alertness Alert Orientation Name,Place,Situation Language Function Ability No Deficits Noted Safety Awareness Decreased Safety Awareness Memory Description Short Term Impaired Gross Range of Motion Lower Extremity ROM Assessment Within Functional Limits Strength Lower Extremity Strength Assessment Right Impaired Hip 2+/5 Knee 3+/5 Coordination Assessment Gross Coordination Gross Coordination WNL Sensation Assessment Sensation Gross Sensation WNL Muscle Tone Muscle Tone WNL Yes M6 PT-IP Treatment Start: 12/23/22 12:38 Freq: NEEDED Status: Active Protocol: Document 12/23/22 11:20 AB (Rec: 12/23/22 12:53 [facility] Physical Therapy Treatment Exercises Exercises Heel Slides Education Education Provided Precautions,Weight Bearing Status,Post-Op Packet,Safety M7 PT-IP Assessment and Plan Start: 12/23/22 12:38 Freq: NEEDED Status: Active Protocol: Document 12/23/22 11:20 AB (Rec: 12/23/22 12:53 [facility] PT Summary Assessment and Plan Potential Rehabilitation Potential Fair Status of Condition at Evaluation Unstable Summary Impairments Pain,ROM,Strength,Balance, Coordination,Sensation,Tone, Cognition,Bed Mobility, Transfers,Gait,Activity Tolerance Assessment Summary pt is a 67 y/o M s/p R JESÚS anterior approach. pt has RLE anterior hip precautions and is WBAT. pt requiring max A for bed mobility, mod to max A for transfers using FWW and due to low BP, ambulation not completed. pt plans to go home and spouse to assist him. will conduct caregiver training when appropriate. pt also will complete stair climbing to safely go home. will continue to assess progress. Goals Bed Mobility Goal Independent Transfer Goal Independent,Front Wheeled Walker Gait Goal Independent,Front Wheel Walker Gait Distance 200 Other Goals up/down 2 steps DENTISTRY PROFESSOR/SPC CGA improve transfers and ambulation using LRAD 250 ft mod I Days to Meet Goals 5 Frequency of Treatment Frequency Of Treatment Twice a Day Treatment Plan Physical Therapy Treatment Plan Bed Mobility Training,Transfer Training,Gait Training, Therapeutic Exercise,Balance Retraining,Post Op Education, Discharge Planning,Hot or Cold Pack,Neuromuscular Re-ed, Coordination Retraining,Manual Therapy Precautions Anterior Hip Precautions No Hip Extension,No Hip External Rotation Weight Bearing Status Weight Bearing Status Weight Bear as Tolerated Allowed Weight Bearing Amount (enter % RLE WBAT or #) (%) Recommendations To Nursing Amount of Assist Needed 1 Person Assist Discharge Recommendations PT Discharge Recommendations Home with 21/09 Assist Available,Home Health, Outpatient PT Transportation Needs at Discharge Private Vehicle,Wheelchair/ Cabulance
--- NOTE | 2022-12-23 11:26 | CM.DANOTE ---
Reviewed EMR for medical status and anticipated home d/c needs. Met at bedside with pt and his SO, Katey, to introduce self and role. Pt found to be alert, oriented, able to engage in decision-making needs. Payor: Fredo HODGES [facility] Attending: Farida Kim Pt is a 67 year-old M admitted for total R-hip arthroplasty. Pt reportedly had a hx of worsening and constant pain in his right hip, which has impacted his lifestyle and level of activities. Pt had tried several methods of pain and activity reduction, and states that even the cortisone injections had short-lived benefit. Pt resides with his SO on a farm on [facility] [facility]. They have several stairs, but feel that he can be safely brought in to the back door of the home, and assisted by friends to get upstairs to his bedroom. SO, Katey, is very involved and supportive. They have all DME needed for a safe home return. Additional OP therapies pending his work later this afternoon with PT. He had become orthostatic in the am when PT attempted to work with him the first time. Plan is home d/c w/SO sometime today, pending his blood pressure stabilizing. DCP will follow and assist with any OP needs that are identified. Discharge Planning/Care Management Advanced directive, confirm from FAMILY Start: 12/23/22 04:33 Freq: Q24H Status: Active Protocol: Document 12/22/22 20:33 CT (Rec: 12/23/22 04:34 CT [id number]) Advance Directive, confirm on record Time 20:00 Person contacted patient Copy received No CM Discharge Assessment Start: 12/23/22 11:13 Freq: Status: Active Protocol: Document 12/23/22 11:13 DPL (Rec: 12/23/22 11:26 DPL [id number]) Discharge Planning Assessment Assigned Wax Blender SHON Rocha Advance Directives? No Advance Directives on File No History Provided By Patient Has Patient been admitted in last 30 No days? Prior Living Arrangements House Household Members significant other Type of transporation used prior to Drives own vehicle admit Independent with ADL's Yes Is patient alert and oriented? Yes Caregiver for Another No DME Already Rented / Owned Elevated Toilet Seat,FWW / Walker,Cane Comment F/u OP w/Farida Kim. OP therapies will be determined at that time. Barriers to Discharge No Referrals Initiated None needed Whiteboard Updated in Patient Room with Yes name and ext. # of Wax Blender Review Status In Process Please Provide Date Initial DC 12/24/22 Assessment Was Performed Pre-Anesthesia Assessment Start: 12/16/22 09:34 Freq: Status: Active Protocol: Document 12/16/22 09:34 CAB (Rec: 12/16/22 10:35 CAB [id number]) Pre-Anesthesia Assessment PAC Comment Pt states he may have a upper jaw infection. He has been using saltwater rinses. He reports slight pain, no fevers. I emailed [facility] to inform them and advised patient to contact them as well for triage. Preferred Name Abraham Patient Information Reviewed Via Phone Assessment Assessment Completed With Patient Diagnostic Results BMP/CMP,CBC,EKG Comment Labs @ 11/24/22, outisde EKG scanned Primary Care Provider Cesia Aguirre Medical Clearance Received Yes Seen Specialist in Last 12 Months Yes Specialist Seen Haul Truck Driver,Sport Internship, Orthopedist Primary Language Irish Preferred Language Irish Dog Obedience Instructor Required No Height 182.88 cm Weight 88.904 kg Body Mass Index (BMI) 26.6 Hearing Ability Hearing Impaired Visual Assist Glasses Dentition Type Teeth, Natural Present Barriers to Learning None Hx Anesthesia Reactions No: Hx of SIADH Hx Family Anesthesia Reaction No Hx Malignant Hyperthermia No Hx Blood Transfusions No Hx Blood Transfusion Reaction No Anesthesia Review Requested No Loss Prevention And Safety Manager No alcohol intake current alcohol intake frequency holidays/special occasions only Smoking Status Former smoker how long ago did patient quit smoking Approx 30 years ago Substance Use Type marijuana Comment CBD Edibles Pain Present Pain Reported Musculoskeletal Symptoms Abnormal Gait,Back Pain, Difficulty Walking,Joint Pain, Neck Pain History of Falling (Recent or History of No ) Patient is completely paralyzed or No completely immobile Mental Status Oriented to own ability Is patient on oxygen? No Does patient have FERGUSON/SOB No Hx Sleep Apnea No CPAP/BIPAP use not prescribed Currently Taking a Beta Meagan No Can You Climb a Flight of Stairs Without Yes SOB Hx Chest Pain No Hx SOB No Hx Syncope or Dizziness No Anti-Coagulant Therapy No Has a Haul Truck Driver Yes: Pre-op visit 12/03/[address] Ulloa Cardiac Testing Yes: Nuc perf scan 04/14/22, Echo 03/13/22 @ [facility] Hx Pacemaker/ICD No Pacemaker Rep Required? 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 Yes Received all doses? Yes Marital Status Lives With significant other Current Living Arrangements House Number of Floors (Floors) Two Floors Support System Significant Other Does the Patient Have Assistance After Yes Surgery Patient Discharge Plan Description Return Home Comment Pt advised overnight length of stay per surgeon Additional comment Lives on [facility] Feels Safe in Current Environment Yes Been Physically Hurt or Threatened By a No Person in Current Environment Do you have thoughts of harming yourself None or others? Are you currently considering suicide? No Do you have a plan to hurt yourself or No Plan others? Do You Have Any Spiritual Beliefs That No May Affect Your HC Choices? Do You Have Any Cultural Practices That No May Affect Your HC Choices? Comment Atheist Who Can We Speak to About Patient's Care Family, friends Identifying Code for Release of Patient Declines to issue Information Health Care Proxy/Next of Kin Regina Del Toro (S.O.) Health Care Proxy Emergency Contact Name Regina Del Toro (S.O.) Emergency Contact Advance Directives? No Advance Directives on File No Power of User Experience Manager Yes Power of User Experience Manager Name Regina Del Toro (S.O.) Power of User Experience Manager PAC Instructions Durable medical equipment, Medications to take/avoid, Nasal antibiotic,No ETOH/ petroleum product on skin DOS, NPO,Pre-surgical wash,Sensory aids,Sturdy shoes/comfortable clothes,Do not bring valuables and remove jewelry
[2022-12-23 13:01] LABS: BUN Creatinine Ratio 18.8 (6-22); Blood Urea Nitrogen 12 mg/dL (9-20); Carbon Dioxide 28 mmol/L (22-32); Chloride 101 mmol/L (98-107); Estimated Glomerular Filt Rate > 60 mL/min (>60); Glucose 125 mg/dL (80-110); HEMOLYSIS < 15 (0-50); Potassium 3.9 mmol/L (3.4-5.1); Sodium 131 mmol/L (137-145)
[2022-12-23 13:50] VITALS: RESP 14; O2SAT 99
--- NOTE | 2022-12-23 15:12 | PT.IPTN ---
Current Diagnoses Unilateral primary osteoarthritis, right hip (12/22/22) Presence of unspecified artificial hip joint (12/22/22) Surgery Performed Operation Date: 12/22/22 13:45 Actual Procedures p Total Hip Arthroplasty/Anterior Approach(Right) - Farida Kim MD Physical Therapy Treatment Note M2 PT-IP Current Condition Start: 12/23/22 12:38 Freq: NEEDED Status: Active Protocol: Document 12/23/22 11:20 AB (Rec: 12/23/22 12:53 AB [id number]) Physical Therapy Current Condition Current Condition Evaluation Date 12/23/22 Treatment Diagnosis s/p R JESÚS anterior appraoch; difficulty in walking Onset Date 12/22/22 M3 PT-IP Subjective Start: 12/23/22 12:38 Freq: NEEDED Status: Active Protocol: Document 12/23/22 15:58 TS (Rec: 12/23/22 16:28 TS [id number]) Subjective Physical Therapy Visit Type Type Treatment Note Visit Start Time 15:12 Visit Stop Time 15:56 Total Visit Minutes 44 Notes Spouse present for caregiver training. Number of ELECTRICAL LINE WORKER Visits 1 Physical Therapy Visit Comments Patient Comments Pt found resting in chair, agreeable to PT. Therapy Pain Assessment Pain When Pain Assessed At Rest Pain Present Pain Present Pain Reported M4 PT-IP Mobility and Gait Start: 12/23/22 12:38 Freq: NEEDED Status: Active Protocol: Document 12/23/22 15:58 TS (Rec: 12/23/22 16:28 TS [id number]) PT-Bed Mobility Assessment Supine to Sit Supine to Sit Standby Assistance Sit to Supine Sit to Supine Minimal Assistance,1 Person Assistance Scooting Scooting to Edge of Bed Standby Assistance PT-Transfer Assessment Sit to and From Stand Sit to and from Stand Standby Assistance,Use of Upper Extremities Equipment Transfer Assistive Device Gait Belt,Front Wheeled Walker Orthotic/Prosthetic Devices or Brace: No Transfers Transfer Destination Chair Transfer Technique Stand Step Pivot Transfer Ability Level of Assist Standby Assistance,Use of Upper Extremities Comments Mobility Comments Pt found resting in chair, BP 101/60, agreeable to PT. Sit to stand with FWW x2 SBA from chair with BUE support on arms of chair. BP in standing 93/ 60, pt denied any lightheadedness, dizziness, or thermal changes. He ambulated ~175' SBA with step to gait and heavy use of UEs on FWW. After ~100' pt reported some lightheadedness but was tolerable. He ambulated back to room, performed steps x8 with SPC LUE and R handheld assist from caregiver CGA. Pt requested to practice bed mobility. Sit to supine into bed Serafin for RLE into bed. Supine to sit SBA, provided cues for BUE support for uprighting trunk. Pt performed stand step pivot to chair SBA with FWW. Pt was left in chair with all needs met, spouse in room, RN notified. Gait Assessment Gait Gait Assistance Required: Standby Assistance Distance (Feet) 175 Able to Maintain Weight Bearing Status Yes During Gait Assistive Devices Assistive Device Gait Belt,Front Wheeled Walker Orthotic/Prosthetic Devices or Brace: No Gait Deviations General Gait Pattern Step-to Gait Factors Limiting Gait Function Factors Limiting Gait Function Decreased Activity Tolerance, Decreased Strength,Pain,Poor Balance Comments Gait Comments See mobility comments. Stair Climbing Assessment Evaluation Level of Assist On Stairs Contact Guard Assistance,1 Person Assistance Devices Stair Climbing Assistive Devices Straight Cane,Right Railing Technique/Endurance Stair Climbing Direction Ascend and Descend Stair Climbing Technique Step to Step Number of Steps Climbed 8 Comments Stair Climbing Comments See mobility comments. PT-Balance Assessment Sitting Balance and Reactions Static Sitting Balance Ability Good Dynamic Sitting Balance Ability Good Standing Balance and Reactions Static Standing Balance Ability Good Dynamic Standing Balance Ability Good Device Used FWW M5 PT-IP Objective Assessments Start: 12/23/22 12:38 Freq: NEEDED Status: Active Protocol: Document 12/23/22 11:20 AB (Rec: 12/23/22 12:53 AB [id number]) Orientation Orientation/Cognition Level of Alertness Alert Orientation Name,Place,Situation Language Function Ability No Deficits Noted Safety Awareness Decreased Safety Awareness Memory Description Short Term Impaired Gross Range of Motion Lower Extremity ROM Assessment Within Functional Limits Strength Lower Extremity Strength Assessment Right Impaired Hip 2+/5 Knee 3+/5 Coordination Assessment Gross Coordination Gross Coordination WNL Sensation Assessment Sensation Gross Sensation WNL Muscle Tone Muscle Tone WNL Yes M6 PT-IP Treatment Start: 12/23/22 12:38 Freq: NEEDED Status: Active Protocol: Document 12/23/22 15:58 TS (Rec: 12/23/22 16:28 TS [id number]) Physical Therapy Treatment Education Education Provided Precautions,Weight Bearing Status,Post-Op Packet,Safety M7 PT-IP Assessment and Plan Start: 12/23/22 12:38 Freq: NEEDED Status: Active Protocol: Document 12/23/22 15:58 TS (Rec: 12/23/22 16:28 TS [id number]) PT Summary Assessment and Plan Potential Rehabilitation Potential Good Summary Impairments Pain,ROM,Strength,Balance, Coordination,Sensation,Tone, Cognition,Bed Mobility, Transfers,Gait,Activity Tolerance Progress Towards Goals Progressing Toward Goals Assessment Summary Abraham is making good progress with his mobility this session . BP remains low, 101/60 sitting and 93/60 and 85/52 in standing, he had minimal lightheadedness. He progressed his gait to ~175'SBA with FWW , had no buckling or LOB. He progressed to steps x8 CGA with SPC and handheld assist from spouse. He required Serafin for RLE into bed, SBA for other bed mobility. Spouse was instructed in and performed proper handplacement on gait belt for gait/steps and step sequencing. PT is recommending return home with assist from spouse and outpatient PT. Goals Bed Mobility Goal Independent Transfer Goal Independent,Front Wheeled Walker Gait Goal Independent,Front Wheel Walker Gait Distance 200 Other Goals up/down 2 steps CHIEF DESIGN ENGINEER/SPC CGA improve transfers and ambulation using LRAD 250 ft mod I Days to Meet Goals 5 Frequency of Treatment Frequency Of Treatment Twice a Day Treatment Plan Physical Therapy Treatment Plan Bed Mobility Training,Transfer Training,Gait Training, Therapeutic Exercise,Balance Retraining,Post Op Education, Discharge Planning,Hot or Cold Pack,Neuromuscular Re-ed, Coordination Retraining,Manual Therapy Precautions Anterior Hip Precautions No Hip Extension,No Hip External Rotation Weight Bearing Status Weight Bearing Status Weight Bear as Tolerated Allowed Weight Bearing Amount (enter % RLE WBAT or #) (%) Recommendations To Nursing Amount of Assist Needed 1 Person Assist Discharge Recommendations PT Discharge Recommendations Home with Assistance, Outpatient PT Transportation Needs at Discharge Private Vehicle,Wheelchair/ Cabulance
[2022-12-23 16:11] VITALS: BP 92/58; PULSE 66; RESP 18; TEMP 36.7; O2SAT 99
[2022-12-23 21:15] VITALS: BP 103/57; PULSE 71; RESP 18; TEMP 36.8; O2SAT 95
[2022-12-24 00:42] VITALS: BP 106/58; PULSE 69; RESP 18; TEMP 36.8; O2SAT 92
[2022-12-24] MEDS: OXYCODONE IR 5 MG TABLET PO (04:10)
[2022-12-24] MEDS: IBUPROFEN 400 MG TABLET PO ×2 (04:10→09:37)
[2022-12-24 05:42] VITALS: BP 110/68; PULSE 82; RESP 19; TEMP 36.2; O2SAT 96
[2022-12-24] MEDS: DOCUSATE 100 MG CAPSULE PO (08:03)
[2022-12-24] MEDS: ASPIRIN EC 81 MG TABLET PO (08:03)
[2022-12-24 08:17] VITALS: BP 104/67; PULSE 72; RESP 18; TEMP 36.8; O2SAT 97
--- NOTE | 2022-12-24 08:28 | PT.IPTN ---
Current Diagnoses Unilateral primary osteoarthritis, right hip (12/22/22) Presence of unspecified artificial hip joint (12/22/22) Surgery Performed Operation Date: 12/22/22 13:45 Actual Procedures p Total Hip Arthroplasty/Anterior Approach(Right) - Farida Kim MD Physical Therapy Treatment Note M2 PT-IP Current Condition Start: 12/23/22 12:38 Freq: NEEDED Status: Active Protocol: Document 12/23/22 11:20 AB (Rec: 12/23/22 12:53 AB [id number]) Physical Therapy Current Condition Current Condition Evaluation Date 12/23/22 Treatment Diagnosis s/p R JESÚS anterior appraoch; difficulty in walking Onset Date 12/22/22 M3 PT-IP Subjective Start: 12/23/22 12:38 Freq: NEEDED Status: Active Protocol: Document 12/24/22 08:41 TS (Rec: 12/24/22 08:48 TS [id number]) Subjective Physical Therapy Visit Type Type Treatment Note Visit Start Time 08:28 Visit Stop Time 08:40 Total Visit Minutes 12 Notes Vitals: BP 99/58 in sitting. Number of AUTO SERVICE INSTRUCTOR Visits 2 Physical Therapy Visit Comments Patient Comments Pt found resting in chair, reports he's feeling good, agreeable to PT. M4 PT-IP Mobility and Gait Start: 12/23/22 12:38 Freq: NEEDED Status: Active Protocol: Document 12/24/22 08:41 TS (Rec: 12/24/22 08:48 TS [id number]) PT-Transfer Assessment Sit to and From Stand Sit to and from Stand Standby Assistance,Use of Upper Extremities Equipment Transfer Assistive Device Gait Belt,Front Wheeled Walker Orthotic/Prosthetic Devices or Brace: No Comments Mobility Comments BP taken in sitting 99/58, pt denied any lightheadedness. Sit to stand SBA with FWW, pt reports some lightheadedness. He ambulated ~200'SBA with FWW with step to gait, had no buckling or LOB. Pt was left back in chair in room, has no concerns, spouse to assist pt in dressing. Gait Assessment Gait Gait Assistance Required: Standby Assistance Distance (Feet) 200 Able to Maintain Weight Bearing Status Yes During Gait Assistive Devices Assistive Device Gait Belt,Front Wheeled Walker Orthotic/Prosthetic Devices or Brace: No Gait Deviations General Gait Pattern Step-to Gait Factors Limiting Gait Function Factors Limiting Gait Function Decreased Activity Tolerance, Decreased Strength,Pain,Poor Balance Comments Gait Comments See mobility comments. PT-Balance Assessment Sitting Balance and Reactions Static Sitting Balance Ability Good Dynamic Sitting Balance Ability Good Standing Balance and Reactions Static Standing Balance Ability Good Dynamic Standing Balance Ability Good Device Used FWW M5 PT-IP Objective Assessments Start: 12/23/22 12:38 Freq: NEEDED Status: Active Protocol: Document 12/23/22 11:20 AB (Rec: 12/23/22 12:53 AB [email or web address]) Orientation Orientation/Cognition Level of Alertness Alert Orientation Name,Place,Situation Language Function Ability No Deficits Noted Safety Awareness Decreased Safety Awareness Memory Description Short Term Impaired Gross Range of Motion Lower Extremity ROM Assessment Within Functional Limits Strength Lower Extremity Strength Assessment Right Impaired Hip 2+/5 Knee 3+/5 Coordination Assessment Gross Coordination Gross Coordination WNL Sensation Assessment Sensation Gross Sensation WNL Muscle Tone Muscle Tone WNL Yes M6 PT-IP Treatment Start: 12/23/22 12:38 Freq: NEEDED Status: Active Protocol: Document 12/24/22 08:41 TS (Rec: 12/24/22 08:48 TS [id number]) Physical Therapy Treatment Education Education Provided Precautions,Weight Bearing Status,Post-Op Packet,Safety M7 PT-IP Assessment and Plan Start: 12/23/22 12:38 Freq: NEEDED Status: Active Protocol: Document 12/24/22 08:41 TS (Rec: 12/24/22 08:48 TS [id number]) PT Summary Assessment and Plan Potential Rehabilitation Potential Good Summary Impairments Pain,ROM,Strength,Balance, Coordination,Sensation,Tone, Cognition,Bed Mobility, Transfers,Gait,Activity Tolerance Progress Towards Goals Progressing Toward Goals Assessment Summary Abraham progressed his gait to ~ 200' SBA with FWW, continues to have step to gait with some discomfort in RLE. He c/o some slight headedness but did not impact his mobility. PT is recommending return home with assist from spouse and outpatient PT. Goals Bed Mobility Goal Independent Transfer Goal Independent,Front Wheeled Walker Gait Goal Independent,Front Wheel Walker Gait Distance 200 Other Goals up/down 2 steps BOUNTY HUNTER/SPC CGA improve transfers and ambulation using LRAD 250 ft mod I Days to Meet Goals 5 Frequency of Treatment Frequency Of Treatment Twice a Day Treatment Plan Physical Therapy Treatment Plan Bed Mobility Training,Transfer Training,Gait Training, Therapeutic Exercise,Balance Retraining,Post Op Education, Discharge Planning,Hot or Cold Pack,Neuromuscular Re-ed, Coordination Retraining,Manual Therapy Precautions Anterior Hip Precautions No Hip Extension,No Hip External Rotation Weight Bearing Status Weight Bearing Status Weight Bear as Tolerated Allowed Weight Bearing Amount (enter % RLE WBAT or #) (%) Recommendations To Nursing Amount of Assist Needed Standby Assistance Discharge Recommendations PT Discharge Recommendations Home with Assistance, Outpatient PT Transportation Needs at Discharge Private Vehicle,Wheelchair/ Cabulance
--- NOTE | 2022-12-24 08:54 | OT.IP.TRT ---
Current Diagnoses Unilateral primary osteoarthritis, right hip (12/22/22) Presence of unspecified artificial hip joint (12/22/22) Surgery Performed Operation Date: 12/22/22 13:45 Actual Procedures p Total Hip Arthroplasty/Anterior Approach(Right) - Farida Kim MD Occupational Therapy Treatment Note M2 OT-IP Current Condition Start: 12/23/22 11:41 Freq: Status: Active Protocol: Document 12/23/22 08:45 [facility] (Rec: 12/23/22 12:03 [facility] [id number]) Occupational Therapy Current Condition Current Condition Evaluation Date 12/23/22 Treatment Diagnosis S/P R JESÚS Anterior approach Diagnosis Onset Date 12/22/22 Post Operative Precautions Anterior Hip Precautions No Hip Extension,No Hip External Rotation M3 OT- IP Subjective and Pain Start: 12/23/22 11:41 Freq: Status: Active Protocol: Document 12/24/22 09:02 [facility] (Rec: 12/24/22 09:09 [facility] [id number]) OT- Subjective Occupational Therapy Visit Type Type Treatment Note Visit Start Time 08:45 Visit Stop Time 09:54 Total Visit Minutes 9 Occupational Therapy Visit Comments Patient Comments Pt and in the room, pt dressed and ready to go home. Patient/Caregiver Goals To go home. OT Pain Assessment Pain When Pain Assessed During Mobility Pain Present Pain Present Pain Reported M4 OT- IP ADL's Start: 12/23/22 11:41 Freq: Status: Active Protocol: Document 12/24/22 09:02 [facility] (Rec: 12/24/22 09:09 [facility] [id number]) OT ADL-Dressing General Eval Lower Body Dressing Ability Moderate Assistance Comments OT Dressing Comments Pt still having difficulty to move his RLE and needing assist for all LB dressing needs at this time. Pt states good understanding to dress his RLE first and take out last. OT ADL-Toileting Comments OT Toileting Comments Pt to take the urinal home. M5 OT- IP IADL's Start: 12/23/22 11:41 Freq: Status: Active Protocol: Document 12/23/22 08:45 [facility] (Rec: 12/23/22 12:03 [facility] [id number]) OT-Instrumental Activities of Daily Living Deficits IADL Deficits Identified Deficits Home Safety Awareness Awareness of Need for Assistance at Home Good Awareness Ability to Problem Solve Emergency Able to Problem Solve Situations Home Safety Comments Pt's to assist at this time. Medication Management Medication Management Comments Pt to assist as needed. Money Management Money Management Comments Pt's to assist as needed. Meal Preparation Meal Preparation Caregiver Provides Assist Otolaryngology Rep Otolaryngology Rep Caregiver Provides Assist M6 OT- IP Functional Cognition Start: 12/23/22 11:41 Freq: Status: Active Protocol: Document 12/24/22 09:02 [facility] (Rec: 12/24/22 09:09 [facility] [id number]) Cognitive Factors Limiting Selfcare Function Cognitive Comments Cognitive Assessment Comments Pt still needing vc for reassurance of how to follow his hip precautions. Educated pt not to use a wedge a friend has given him as his surgery was the anterior approach versus posterior approach. Suggested pt have pillows on the outside of his right leg to prevent from external rotation. M7 OT- IP Mobility and Balance Start: 12/23/22 11:41 Freq: Status: Active Protocol: Document 12/24/22 09:02 [facility] (Rec: 12/24/22 09:09 [facility] [id number]) OT-Transfer Assessment Comments Mobility Comments Pt able to come to stand with SBA and walk with heavy use of his hands on the FWW. OT- Balance Assessment Sitting Balance and Reactions Static Sitting Balance Ability Good Dynamic Sitting Balance Ability Good Standing Balance and Reactions Static Standing Balance Ability Fair Dynamic Standing Balance Ability Fair M8 OT- IP Objective Assessments Start: 12/23/22 11:41 Freq: Status: Active Protocol: Document 12/23/22 08:45 [facility] (Rec: 12/23/22 12:03 [facility] [id number]) OT Gross Range of Motion Upper Extremity Range of Motion Assessment Within Functional Limits OT Strength Upper Extremity Strength Assessment Within Functional Limits M9 OT- IP Assessment and Plan Start: 12/23/22 11:41 Freq: Status: Active Protocol: Document 12/24/22 09:02 [facility] (Rec: 12/24/22 09:09 [facility] [id number]) OT Summary Assessment and Plan Potential Rehabilitation Potential Good Analytic Complexity at Evaluation Low Summary OT Impairments Pain,Functional Mobility, Dressing,Toileting,Bathing, Toilet Transfers,Shower Transfers,Activity Tolerance Progress Towards Goals Progressing Toward Goals Assessment Summary Pt doing much better today and able to finalize hip precautions for bed mobility and positioning, ADL's and car transfers. Pt to go home with his and have outpt PT. Goals Dressing Goal Independent Bathing Goal Independent Shower Transfer Goal Independent Patient/Caregiver Education Goal Caregiver Independent Assisting Patient Days to Meet Goals 5 Frequency of Treatment Frequency Of Treatment Once a Day Treatment Plan OT Treatment Plan ADL Training,Functional Mobility,Patient/Family Education,Discharge Planning Discharge Recommendations OT Discharge Recommendations Home with Assistance, Outpatient PT Home Equipment Needs showr chair/tub bench, LB dressing equipment Transportation Needs at Discharge Private Vehicle
[2022-12-24] MEDS: OXYCODONE IR 10 MG TABLET PO (09:36)
== END 2022-12-24 09:35 | disposition home or self-care (01) ==
LOC: OR 11:45 → AC 11:45
PROVIDERS: Physician Assistant; PCP Family Medicine; Referring Provider Orthopaedic Surgery; Visit Provider Orthopaedic Surgery
PROC: (CPT 27130; principal; 2022-12-22 13:45)
DX: M16.11 Unilateral primary osteoarthritis, right hip (principal); M24.051 Loose body in right hip; M25.751 Osteophyte, right hip
CPT/HCPCS: 27130; 36415; 73502; 76000; 80048; 85014; 85018; 94760; 94762; 97116; 97163; 97165; 97530; C1776; C9290; J0171; J0690; J1100; J1170; J2405; J2704

== ENCOUNTER → 2023-07-13 09:58 | Outpatient (CLI) | payer MEDICARE, SELFPAY ==
[2022-12-22 20:00] VITALS: BMI 25.4
[2023-07-13 19:15] LABS: HEMOLYSIS < 15 (0-50); Iron 84 ug/dL (49-181)
[2023-07-13 19:19] LABS: Alanine Aminotransferase 26 IU/L (<50); Albumin 4.2 g/dL (3.5-5.0); Albumin Globulin Ratio 1.5 (1.0-2.8); Alkaline Phosphatase 63 U/L (38-126); Aspartate Aminotransferase 31 IU/L (17-59); BUN Creatinine Ratio 26.7 (6-22); Bilirubin Total 0.5 mg/dL (0.2-1.3); Blood Urea Nitrogen 20 mg/dL (9-20); Calcium 9.6 mg/dL (8.4-10.2); Carbon Dioxide 24 mmol/L (22-32); Chloride 106 mmol/L (98-107); Estimated Glomerular Filt Rate > 60 mL/min (>60); Globulin 2.8 g/dL (1.7-4.1); Glucose 97 mg/dL (80-110); HEMOLYSIS < 15 (0-50); Potassium 4.7 mmol/L (3.4-5.1); Sodium 135 mmol/L (137-145)
[2023-07-13 19:22] LABS: Add Manual Diff / Slide Review NO; Basophils Absolute Auto 0 /uL (0-100); Basophils Percent Auto 0.9 % (0-2); Eosinophils Absolute Auto 200 /uL (0-450); Eosinophils Percent Auto 5.6 % (2-4); Hematocrit 38.4 % (41-53); Hemoglobin 13.2 g/dL (13.5-17.5); Lymphocytes Absolute Auto 1200 /uL (1100-4500); Lymphocytes Percent Auto 27.7 % (25-40); Mean Corpuscular HGB Conc 34.4 % (30-36); Mean Corpuscular Volume 90.3 fL (80-100); Monocytes Absolute Auto 600 /uL (0-900); Monocytes Percent Auto 14.3 % (3-14); Neutrophils Absolute Auto 2300 /uL (1500-7000); Neutrophils Percent Auto 51.5 % (50-75); Platelet Count 203 X10^3/uL (150-400); Red Blood Cell Count 4.26 X10^6/uL (4.5-5.9); Red Cell Distribution Width 15.7 % (11.6-14.8); White Blood Cell Count 4.4 X10^3/uL (4.5-11.0)
[2023-07-13 19:31] LABS: LDL Cholesterol Direct 122 mg/dL (<100)
[2023-07-13 19:35] LABS: Percent Iron Saturation 29 % (20-50); Total Iron Binding Capacity 286 ug/dL (261-462); Transferrin 233 mg/dL (206-381)
[2023-07-13 19:53] LABS: Prostate Specific Antigen Scrn 0.381 ng/mL (0.1-4.0)
[2023-07-13 19:56] LABS: Ferritin 45 ng/mL (18-464)
[2023-07-13 20:28] LABS: Folate 14.4 ng/mL (2.76-20.0); Vitamin B12 449 pg/mL (239-931)
== END ==
PROVIDERS: PCP Family Medicine; Visit Provider Family Medicine
DX: Z12.5 Encounter for screening for malignant neoplasm of prostate (principal); E78.2 Mixed hyperlipidemia; E87.1 Hypo-osmolality and hyponatremia; E83.51 Hypocalcemia; D64.9 Anemia, unspecified
CPT/HCPCS: 80053; 82607; 82728; 82746; 83540; 83550; 83721; 85025; G0103

== ENCOUNTER → 2024-07-11 10:33 | Outpatient (CLI) | payer MEDICARE, OTHER, SELFPAY ==
[2022-12-22 20:00] VITALS: BMI 25.4
[2024-07-11 18:57] LABS: Add Manual Diff / Slide Review NO; Basophils Absolute Auto 0 /uL (0-100); Basophils Percent Auto 0.8 % (0-2); Eosinophils Absolute Auto 400 /uL (0-450); Eosinophils Percent Auto 8.4 % (2-4); Lymphocytes Absolute Auto 1400 /uL (1100-4500); Lymphocytes Percent Auto 30.8 % (25-40); Mean Corpuscular HGB Conc 34.1 % (30-36); Mean Corpuscular Hemoglobin 31.1 PG (26-34); Monocytes Absolute Auto 700 /uL (0-900); Monocytes Percent Auto 15.5 % (3-14); Neutrophils Absolute Auto 2000 /uL (1500-7000); Neutrophils Percent Auto 44.5 % (50-75); Platelet Count 222 X10^3/uL (150-400); Red Blood Cell Count 4.51 X10^6/uL (4.5-5.9); Red Cell Distribution Width 15.4 % (11.6-14.8); White Blood Cell Count 4.4 X10^3/uL (4.5-11.0)
[2024-07-11 19:03] LABS: Reticulocyte Count, Percent 0.6 % (0.9-2.6)
[2024-07-11 19:48] LABS: Ferritin 47 ng/mL (18-464)
== END ==
PROVIDERS: PCP Family Medicine; Visit Provider Family Medicine
DX: D64.9 Anemia, unspecified (principal)
CPT/HCPCS: 82728; 85025; 85045

== ENCOUNTER → 2024-09-07 13:24 | Outpatient (CLI) | payer MEDICARE, SELFPAY ==
[2022-12-22 20:00] VITALS: BMI 25.4
[2024-09-07 19:29] LABS: Hematocrit 38.8 % (41-53); Hemoglobin 13.2 g/dL (13.5-17.5); Mean Corpuscular HGB Conc 34.0 % (30-36); Mean Corpuscular Hemoglobin 30.8 PG (26-34); Mean Corpuscular Volume 90.9 fL (80-100); Platelet Count 208 X10^3/uL (150-400)
[2024-09-07 19:39] LABS: Alanine Aminotransferase 25 IU/L (<50); Albumin 4.1 g/dL (3.5-5.0); Albumin Globulin Ratio 1.6 (1.0-2.8); Alkaline Phosphatase 51 U/L (38-126); Blood Urea Nitrogen 15 mg/dL (9-20); Calcium 9.0 mg/dL (8.4-10.2); Carbon Dioxide 23 mmol/L (22-32); Chloride 100 mmol/L (98-107); Cholesterol 223 mg/dL (140-199); Estimated Glomerular Filt Rate > 60 mL/min (>60); Globulin 2.6 g/dL (1.7-4.1); Glucose 89 mg/dL (70-99); HDL Cholesterol 71 mg/dL (40-60); HEMOLYSIS < 15 (0-50); Potassium 4.2 mmol/L (3.4-5.1); Sodium 130 mmol/L (137-145); Total Protein 6.7 g/dL (6.3-8.2); Triglycerides 78 mg/dL (35-150)
[2024-09-07 19:40] LABS: Hemoglobin A1C% w Est Avg Glu 5.3 % (4.0-6.0)
[2024-09-07 20:10] LABS: Thyroid Stimulating Hormone 1.02 uIU/mL (0.47-4.68)
[2024-09-07 20:26] LABS: Eosinophils Percent Manual 8.0 % (2-4); Lymphocytes Percent Manual 33.0 % (25-45); Monocytes Percent Manual 15.0 % (2-11); Neutrophils Absolute Manual 1848 /uL (3000-5900); Segmented Neutrophils Percent 44.0 % (38-70); Total Cells Counted 100
[2024-09-07 20:29] LABS: RBC Morphology Normal Morphology
== END ==
PROVIDERS: PCP Family Medicine; Visit Provider Family Medicine
DX: E78.2 Mixed hyperlipidemia (principal); R73.9 Hyperglycemia, unspecified; Z12.5 Encounter for screening for malignant neoplasm of prostate; E87.1 Hypo-osmolality and hyponatremia; D64.9 Anemia, unspecified; E83.51 Hypocalcemia; E22.2 Syndrome of inappropriate secretion of antidiuretic hormone; D72.821 Monocytosis (symptomatic); D72.10 Eosinophilia, unspecified
CPT/HCPCS: 80053; 80061; 83036; 84443; 85025; G0103

== ENCOUNTER → 2024-09-21 11:41 | Outpatient (CLI) | payer MEDICARE, OTHER, SELFPAY ==
[2022-12-22 20:00] VITALS: BMI 25.4
--- NOTE | 2024-09-21 11:42 | DI.US.S_ITS ---
PROCEDURE: US PERIPH VENOUS LOW EXTREM RT INDICATIONS: swollen right lower leg - please evaluate for are DVT TECHNIQUE: Real-time imaging, as well as color and pulse Doppler interrogation, were performed of the lower extremity deep veins from the inguinal ligament to the popliteal fossa, with documentation of the visualized calf veins. COMPARISON: None. FINDINGS: The common femoral, femoral, popliteal, and the visualized calf veins are normally compressible, and free of intraluminal thrombus. Color and pulse Doppler demonstrate normal phasic intraluminal flow. There is normal augmentation response to distal compression maneuver. Multiple patent varicosities can be seen branching off of the greater saphenous vein involving the medial right knee and calf. IMPRESSION: No findings of lower extremity deep venous thrombosis. Patent superficial varicosities can be seen medially. Dictated by: Xavi Bates M.D. on 09/21/2024 at 12:07 Approved by: Xavi Bates M.D. on 09/21/2024 at 12:07
== END ==
LOC: US 11:42
PROVIDERS: PCP Family Medicine; Referring Provider Family Medicine; Visit Provider Family Medicine
DX: I83.91 Asymptomatic varicose veins of right lower extremity (principal); M79.89 Other specified soft tissue disorders
CPT/HCPCS: 93971